=== PATIENT | male | born 1965 | race Caucasian/White ===

== ENCOUNTER 2024-10-26 15:11 | Outpatient (OUT) | payer OTHER, SELFPAY ==
[2024-10-26 15:31] LABS: Basophils Percent Auto 0.5 % (0.2-2.0); Eosinophils Absolute Auto 0.1 10^3/uL (0.0-0.7); Eosinophils Percent Auto 1.2 % (0.9-7.0); Hematocrit 42.7 % (42.0-54.0); Hemoglobin 14.1 g/dL (14.0-18.0); Immature Granulocytes Abs Auto 0.01 10^3/uL (0.00-0.03); Immature Granulocytes Pct Auto 0.1 % (0.0-0.5); Lymphocytes Absolute Auto 2.2 10^3/uL (1.2-3.8); Lymphocytes Percent Auto 28.2 % (20.5-60.0); Mean Corpuscular Hemoglobin 27.5 pg (25.9-34.0); Mean Corpuscular Volume 83.4 fL (80.0-94.0); Mean Platelet Volume 10.9 fL (9.5-13.5); Monocytes Absolute Auto 0.7 10^3/uL (0.3-0.8); Monocytes Percent Auto 8.8 % (1.7-12.0); Neutrophils Absolute Auto 4.7 10^3/uL (1.4-6.5); Neutrophils Percent Auto 61.2 % (43.0-75.0); Platelet Count 226 10^3/uL (150-450); Red Blood Count 5.12 10^6/uL (4.70-6.10); White Blood Count 7.7 10^3/uL (4.0-11.0)
[2024-10-26 15:57] LABS: Creatinine Urine Random 76.62 mg/dL (20.00-300.00); Microalbumin Urine Random <1.3 mg/dL (<=30.0)
[2024-10-26 15:58] LABS: Estimated Average Glucose 192 mg/dL; Glycohemoglobin A1C 8.3 % (4.5-6.2)
[2024-10-26 15:59] LABS: Alanine Aminotransferase 21 U/L (16-63); Albumin Level 3.8 g/dL (3.4-5.0); Alkaline Phosphatase 102 U/L (46-116); Anion Gap 13.2; Aspartate Amino Transferase 8 U/L (15-37); BUN Creatinine Ratio 11.7; Bilirubin Total 0.5 mg/dL (0.2-1.0); Calcium 8.9 mg/dL (8.5-10.1); Chloride 101 mmol/L (98-107); Estimated GFR (African America >60 (>=60 mL/min/1.73m^2); Estimated GFR (Non-African Ame >60 (>=60 mL/min/1.73m^2); Globulin 3.7 g/dL; Glucose 266 mg/dL (74-106); Potassium 4.2 mmol/L (3.5-5.1); Sodium 139 mmol/L (136-145); Total Protein 7.5 g/dL (6.4-8.2)
[2024-10-26 16:28] LABS: Prostate Specific Antigen Scrn 0.44 ng/mL (<=4.00)
== END 2024-10-26 15:12 | disposition home or self-care (01) ==
PROVIDERS: PCP Family Medicine; Visit Provider Family Medicine
DX: E11.9 Type 2 diabetes mellitus without complications (principal); Z12.5 Encounter for screening for malignant neoplasm of prostate
CPT/HCPCS: 36415; 80053; 82043; 82570; 83036; 85025; G0103

== ENCOUNTER 2025-06-18 12:14 | Outpatient (OUT) | payer OTHER, SELFPAY ==
--- OUTSIDE RECORDS SUMMARY | 2025-06-18 08:00 | XMS_ITS | Encounter Summary ---
Author Organization [facility] Address [address] [place] [address] Care Team Providers Care Quality Auditor Name Role Phone Mary Scruggs [employer]ST[employer] Primary Care Provider [phone] Encounter Details Date Type Department Care Team (Late st Contact Info) Description 06/18/2025 8:00 AM EDT Ancillary Procedure [facility] [address] [facility] [place] [id number] Social History Tobacco Use Types Packs/Day Years Used Date Smoking Tobacco: Never Smokeless Tobacco: Former Snuff Comments:10 plus years tobac co free Alcohol Use Standard Drinks/Week Comments Not Currently 4 (1 standard drink = 0.6 oz pur e alcohol) Sex and Gender Information Value Date Recorded Sex Assigned at Not on file Legal Sex Male 7:01 PM EDT Gender Identity Not on file Sexual Orientation Not on file documented as of this encounter Plan of Treatment Pending Results Name Type Priority Associated Diagnoses Date /Time XR hip left 2 or 3 views Imaging Routine Left hip pain 06/18/2025 7:51 AM EDT documented as of this encounter Visit Diagnoses Not on filedocumented in this encounter Care Teams Quality Auditor Relationship Specialty Start Date End Date Mary Scruggs, GAGAN [address] [place] [id number] PCP - General Family Medicine 06/18/25 documented as of this encounter
--- OUTSIDE RECORDS SUMMARY | 2025-06-18 08:05 | XMS_ITS | Encounter Summary ---
Author Organization [facility] Address [address] [place] [address] Care Team Providers Care Surveillance Inspector Name Role Phone Mary Scruggs [employer]NER Primary Care Provider [phone] Encounter Details Date Type Department Care Team (Late st Contact Info) Description 06/18/2025 8:05 AM EDT Ancillary Procedure [facility] [address] [facility] [place] [id number] Social History Tobacco Use Types Packs/Day Years [...] Type Priority Associated Diagnoses Date /Time XR knee 3 views left Imaging Routine Status post left knee replacement 06/18/2025 7:51 AM EDT documented as of this encounter Visit Diagnoses Not on filedocumented in this encounter Care Teams Surveillance Inspector Relationship Specialty Start Date End Date Mary Scruggs, GAGAN [address] [place] [phone] PCP - General Family Medicine 06/18/25 documented as of this encounter
--- OUTSIDE RECORDS SUMMARY | 2025-06-18 08:07 | XMS_ITS | Continuity of Care Document ---
Author Organization [facility] Address [address] [place] [address] Phone Care Team Providers Care Archeologist Name Role Phone Mely Vasquez MD Primary Care Provider Mely Vasquez MD Attending Provider Care Teams Patient Care Team Team Status: Active Member Role Status Dates Mely Vasquez MD Primary Care Provider Active Patient Care Team Team Status: Inactive Member Role Status Dates Mely Vasquez MD Primary Care Provider Active Start: June 18, 2025 End: June 18, 2025 Mely Vasquez MD Attending Provider Active St art: June 18, 2025 End: June 18, 2025 Chief Complaint and Reason for Visit Chief Complaint Admit Date A1C Check June 18, 2025 11:35am Reason for Visit Admit Date Type 2 diabetes mellitus with hyperglyce edwar June 18, 2025 11:35am Allergies, Adverse Reactions, Alerts Allergen Type Severity Reaction Last Updated Verified Status No Known Allergies Allergy Unknown Septem 2024 11:40am Yes Active Social History Smoking Status Status Start Date End Date Date of Observa tion Never smoked tobacco (finding) June 18, 2025 11:32am Observation Status Observation Response Date of Response Legal Sex Male (finding) Sex Assigned At Male 1965 Family History Relationship Condition Age at Onset Recorded Date/T estela father Unknown Heart disease Unknown mother Hypertension Unknown Heart disease Unknown History of heart valve replacement Unknow n Problems Active Problems Medical Problem Onset Date Status Screening PSA (prostate specific antigen) Unknow n Active Type 2 diabetes mellitus with hyperglycemia Unkn own Active Type II diabetes mellitus Unknown Active Osteoarthritis Unknown Active Snoring Unknown Active Gastro-esophageal reflux disease without esophag itis Unknown Active Lumbar paraspinal muscle spasm Unknown A ctive Medications Medication Status Dose Units Route Directions Qty Days St art Date Stop Date End Date Instructions Adherence Metformin 1,000 mg tablet Discont inued 1000 MG PO Twice daily 60 February 17, 2024 1:27pm Augus t 2023 8:17a m Metformin 1,000 mg tablet Discont inued 1000 MG PO Twice daily 180 May 17, 2024 8:16am May 2023 8:38a m Metformin 1,000 mg tablet Discont inued 0 .ROUTE .COMPLEX 60 2023 8:38am Janua ry 2024 9:36a m TAKE 1 TABLET BY MOUTH TWICE A DAY Metformin 1,000 mg tablet Discont inued 0 .ROUTE .COMPLEX 60 Sepuar y 2024 9:36am November 21, 2024 12:50 pm TAKE 1 TABLET BY MOUTH TWICE A DAY Metformin 1,000 mg tablet Discont inued 0 .ROUTE .COMPLEX 180 November 21, 2024 12:50p m March 18, 2025 10:16 am TAKE 1 TABLET BY MOUTH TWICE A DAY Metformin 1,000 mg tablet Active 0 .ROUTE .COMPLEX 180 March 18, 2025 10:16a m TAKE 1 TABLET BY MOUTH TWICE A DAY Complies with drug therapy Glipizide 10 mg tablet extended release 24hr Active 10 MG PO Daily 2024 11:46a m Complies with drug therapy Cyclobenzap rine 5 mg tablet Active 5 MG PO Daily at bedtime February 22, 2025 2:09pm FreeTextSi tablet at bedtime as needed Orally Once a day; Note: Source Status: Start; Provider: Christina Garcia Complies with drug therapy Glipizide 10 mg tablet extended release 24hr Discont inued 10 MG PO Daily February 22, 2025 2:32pm February 22, 2025 2:33p m Glipizide 10 mg tablet extended release 24hr Discont inued 10 MG PO Daily February 22, 2025 2:33pm [facility] 2024 11:47 am Tirzepatide (Mounjaro) 5 mg/0.5 mL pen injector Active 5 MG SUBCUT every week 6.5 90 2024 12:00a m Complies with drug therapy Cyclobenzap rine 5 mg tablet Discont inued 1 TAB PO Daily at bedtime January 25, 2024 12:00a m January 26, 2024 10:30 am FreeTextSi tablet at bedtime as needed Orally Once a day; Note: Source Status: Start; Provider: Christina Garcia Omeprazole 20 mg capsule,del ayed release(DR/ EC) Active 1 CAP PO Daily January 25, 2024 12:00a m FreeTextSi capsule Orally Once a day; Note: Source Status: Taking; Provider: Christina Boone ( ) Complies with drug therapy Metformin 1,000 mg tablet Discont inued 1000 MG PO Twice daily with meals January 25, 2024 12:00a m January 26, 2024 10:31 am Tadalafil (Cialis) 20 mg tablet Discont inued 20 MG PO Daily as needed January 25, 2024 12:00a m Febru twan 2024 3:41p m administer approximately 30min before sexual activity; do not use more than 1 dose per 24hrs Metformin 1,000 mg tablet Discont inued 1000 MG PO Daily January 26, 2024 10:31a m January 26, 2024 10:47 am Metformin 1,000 mg tablet Discont inued 1000 MG PO Twice daily 60 January 26, 2024 10:46a m February 17, 2024 1:27p m Pregabalin (Lyrica) 300 mg capsule Active 300 MG PO Twice daily 2024 1:00am Complies with drug therapy Amitriptyli ne 10 mg tablet Active 20 MG PO Daily at bedtime 2024 1:00am Complies with drug therapy Glipizide 5 mg tablet extended release 24hr Discont inued 5 MG PO Daily 90 2024 1:00am February 22, 2025 2:33p m Immunizations Immunization Event Date Not Given Reason Dose Number [employer] Work[employer] Lot Number Vaccine Information Statement (VIS) Detail Administration Location Quadrivalent Influenza June 16, 2016 Trivalent Influenza Vaccine May 26, 2017 Vital Signs Vital Reading Result Reference Range Collection Date/Time Height 68 [in_i] June 18, 2025 11:40am Weight 96.78 kg June 18, 2025 11:40am Heart Rate 67 /min 60-100 June 18, 2025 11:40am Respiratory rate 14 /min 12-24 May 222024 11:40am Oxygen saturation by Pulse oximetry 99 % 95-100 June 18, 2025 11:40am BP Systolic 149 mm[Hg] 100-140 June 18, 2025 11:40am BP Diastolic 81 mm[Hg] 60-100 June 18, 2025 11:40am BMI (Body Mass Index) 32.4 kg/m2 Sept2024 11:40am Advance Directives Advance Directive Response Recorded Date/ Time Advance Directives No May 11:32am Insurance Providers Guarantor Franco Gill Address [address] [phone] Contact Info. Home Phone: Payer Policy Id Subscriber's Name Subscriber Id Gary ctive Date Expiration Date MMO [id number] Franco Gill [id number] [place] BC/BS [id number] Franco Gill [id number] Regular Insurance [id number] Consetta Loren Roman [id number] [place] [employer] [id number] Jean Marie Pimentel Roman [id number] Encounters Encounter Location(s) Arrival/Admit Date Discharge/Depart Date Provider(s) Departed Physician/Prov ider Office Visit -[facility] June 18, 2025 11:35am June 18, 2025 12:07pm Mely Vasquez MD Recent Diagnosis Onset Date Admit Date Type 2 diabetes mellitus with hyperglycemia Unkn own June 18, 2025 11:35am Assessments Diagnosis Onset Date Resolution Status Admit Date Type 2 diabetes mellitus wit h hyperglycemia acute June 18, 2025 11:35am Plan of Treatment Future Tests Future scheduled test information is unavailable Pending Tests Pending diagnostic test information is unavailable Future Visits Future appointment information is unavailable Referrals to Other Providers Referral information is unavailable Future Procedures Procedure Name Ordered Date Scheduled Date A1C with Estimated Average Glu June 18 025 11:58am Future Medications Future medication information is unavailable Patient Instructions Patient instructions are unavailable
--- OUTSIDE RECORDS SUMMARY | 2025-06-18 10:10 | XMS_ITS ---
Author Name Auto Generated Organization [facility] Care Team Providers [facility] Helper Name Role Phone CHE, ANNALEE Rdz Referring Unavailable BOLTON, ANNALEE T Attending Unavailable GUZMÁN, MALA Santoyo Attending Unavailable BOLTON, ANNALEE T Referring Unavailable BOLTON, ANNALEE T Referring Unavailable BOLTON, ANNALEE T Referring Unavailable BOLTON, ANNALEE T Attending Unavailable GUZMÁN, MALA Santoyo Attending Unavailable GUZMÁN, MALA Santoyo Attending Unavailable BOLTON, ANNALEE T Referring Unavailable BOLTON, ANNALEE T Attending Unavailable BOLTON, ANNALEE T Referring Unavailable BOLTON, ANNALEE T Referring Unavailable DENBESTEN, ELROY Attending Unavailable TAVARES, HOLLY Referring Unavailable Tavares, Holly A. Attending Unavailable FRANKLIN, ESTEE Referring Unavailable Tavares, Holly A. Admitting Unavailable FRANKLIN, ESTEE Referring Unavailable Uv, Caprim G. Attending Unavailable Tavares, Holly A. Admitting Unavailable Tavares, Holly A. Referring Unavailable Tavares, Holly A. Attending Unavailable Tavares, Holly A. Referring Unavailable Tavares, Holly A. Attending Unavailable Tavares, Holly A. Attending Unavailable Tavares, Holly A. Referring Unavailable Tavares, Holly A. Referring Unavailable Tavares, Holly A. Attending Unavailable Tavares, Holly A. Attending Unavailable Tavares, Holly A. Referring Unavailable Tavares, Holly A. Attending Unavailable Tavares, Holly A. Admitting Unavailable Tavares, Holly A. Attending Unavailable Tavares, Holly A. Admitting Unavailable Tavares, Holly A. Attending Unavailable Tavares, Holly A. Admitting Unavailable Tavares, Holly A. Admitting Unavailable Tavares, Holly A. Attending Unavailable FRANKLIN, ESTEE Referring Unavailable Vu, Linn G. Attending Unavailable FRANKLIN, ESTEE Referring Unavailable NONE, XXXX Referring Unavailable Juárez, Larisa Attending Unavailable Juárez, Larisa Admitting Unavailable Tavares, Holly A. Admitting Unavailable FRANKLIN, ESTEE Referring Unavailable Tavares, Holly A. Attending Unavailable Tavares, Holly A. Admitting Unavailable Tavares, Holly A. Referring Unavailable Tavares, Holly A. Attending Unavailable Tavares, Holly A. Attending Unavailable Tavares, Holly A. Admitting Unavailable FRANKLIN, ESTEE Referring Unavailable Tavares, Holly A. Attending Unavailable Tavares, Holly A. Admitting Unavailable FRANKLIN, ESTEE Referring Unavailable Juárez, Larisa Attending Unavailable Juárez, Larisa Admitting Unavailable FRANKLIN, ESTEE Referring Unavailable PROBLEMS No Problem Records Found PROCEDURES No Procedure Records Found RESULTS CONSULTATION NOTE Observed: 06/10/2025 1:33 PM Status: F Source: [facility] Consultation Note Patient is presenting with a history of CRPS of left lower extremity, peripheral neuropathy and left foot pain. In 06/03/2025 he underwent a spinal cord stimulator implant. He rates his pain as 1/10 in severity. He has very minimal pain in his left foot and feels that this is extremely beneficial. He does have some low back pain and soreness around the incision sites but this is improving he rates his pain as a 3-4/10 in severity. Overall he feels this is very helpful so far. He is taking Lyrica and amitriptyline as well. We discussed continuation of this medication till his next follow-up at that point we can discuss whether it be appropriate to discontinue these medications if he is still doing well AUDRA Score: 34% PHQ-2: 0 Patient denies any symptoms of progressively worsening upper/lower extremity weakness, progressively worsening gait abnormality, new onset bowel/bladder incontinence/ urinary retention, or saddle anesthesia. No new or worsening symptoms of fever, chills, night sweats. 14 Point Review of systems negative unless otherwise noted. General: No acute distress. Patient appears well-nourished. HEENT: Head is normocephalic and external ears are normal in appearance. Cardiovascular: No signs of poor perfusion, exam for edema at patient's baseline Pulmonary: Nonlabored breathing, symmetric chest movement. GI: Abdomen nondistended Integumentary: No lesions in examined areas Neurologic: Alert, oriented x3. Moving all extremities. Posterior lumbar incision sites clean/dry/intact without any surrounding erythema or drainage. Glue is intact. History, physical examination, and personal review of pertinent imaging results indicate a diagnosis of: - Peripheral neuropathy - Left foot pain - Left lower extremity CRPS Plan: - Discussed monitoring incision site and avoiding any water submersion until the site is completely healed. - We discussed continuation of Lyrica and amitriptyline for peripheral neuropathy - Follow-up in 3 months, at this time we can consider discussing whether it would be appropriate to discontinue amitriptyline or Lyrica or both Patient was counseled on the above diagnosis and treatment, all questions were answered and patient agrees to adhere to the plan above. Risk and benefits of appropriate procedures and medications were reviewed as well with patient, who voiced understanding and agreeance. Patient was counseled on appropriate use of opioids if prescribed or renewed today and naloxone was offered to patient if opioids were prescribed or maintained at this visit. If corticosteroid therapy administered for a duration of greater than 12 months, the therapy has been reviewed to ensure it remains efficacious and we have notified the patient's PCP of continued corticosteroid administration. PHQ-2 scoring reviewed with patient and discussed seeking treatment for depression or mood disorder as appropriate. Patient was counseled on smoking cessation and/or continuing to abstain from nicotine/tobacco products as appropriate based on history for greater than 3 minutes if appropriate; as smoking/nicotine can contribute to increased pain overall and decreased wound healing, counseling performed for smoking cessation when appropriate for F17.200 nicotine dependence. AUDRA reviewed and discussed during encounter. Patient counseled on maintaining a healthy BMI as part of the total treatment of their pain and to reduce stress/strain on joints. Patient invited to return or call with any questions or concerns that arise. Result Comment: Electronical ly Signed By: Eugenio Tavares DO\.br\Date and Time Signed: 06/10/25 13:39 EDT PROGRESS NOTE-PHYSICIAN Observed: 2024 11:27 AM Status: F Source: [facility] Progress Note-Physician Patient: LIZ SOLORZANO Age: 59 years Sex: Male : 1965 Associated Diagnoses: None Author: Jerrell Calles MD Postoperative Information Postoperative disposition: Postoperative disposition: To PACU. Optimetrix number: Optimetrix number [id number]. Anesthetic utilized: Monitored anesthesia care. Health Status Allergies: Allergic Reactions (Selected) No Known Allergies Physical Examination Vital Signs 06/03/2025 10:40 EDT Heart Rate Monitored 75 bpm SpO2 98 % 06/03/2025 10:40 EDT Systolic Blood Pressure 152 mmHg HI Diastolic Blood Pressure 78 mmHg Mean Arterial Pressure, Cuff 102 mmHg Pain Assessment: Controlled. General: Awake, Appropriate. Respiratory: Adequate air exchange. Cardiovascular: Stable. Neurological Assessment Anesthetic outcome No anesthetic complications noted. Adequate pain relief. no nausea. Review / Management Condition: Stable. Plan Transfer/Discharge: Transfer/Discharge Discharge when meets criteria. Result Comment: Electronical ly Signed By: Jerrell Calles MD\.br\Date and Time Signed: 06/03/25 11:27 EDT OPERATIVE REPORT Observed: 06/03/2025 10:35 AM Status: F Source: [facility] Operative Report Diagnosis: G90.532, complex regional pain syndrome of the left lower extremity Procedure: Implantation percutaneous spinal cord stimulator neuro electrodes x 2, implantation of spinal cord stimulator neuroreceiver/pulse generator, complex analysis of neurostimulator Anesthesia: MAC Complications: None Ferruler: marketing assistant manager provided Implanted devices: -Neuroreceiver/pulse generator: [employer] wavewriter alpha 16 -Neuroelectrodes: two avista 56cm 8 contact lead -Electrode anchors: two clik X MRI anchors Description: After informed consent was obtained and risks/benefits were reviewed inclusive of risks related to infection/bleeding/nerve injury/injury to surrounding structures of procedural site, antibiotics were administered including 2 g of cefazolin. The patient was then brought to the procedure area and placed in the prone position. Patient was placed on the monitors then monitored with anesthesia. A timeout was then performed indicating the appropriate procedure and patient. Next, the patient was prepped using a ChloraPrep solution and sterile drapes then Ioban were applied, sterile gowns and gloves were utilized throughout the whole case. The needle trajectory overlying the T12/L1 interlaminar space was anesthetized with 2% lidocaine with epi as well as the planned incision site. A 3 cm incision was then made in a longitudinal paramedian approach on the left side lumbar spine along the needle trajectory using an 10 blade. A touhy needle was then advanced into the epidural space with confirmation using glass upjm-ni-nyxmtoizgl syringe and lead was threaded at T12/L1 . A second Touhy was then advanced underneath the initial Touhy. Next we proceeded with epidural placement of both of Avista 56 cm 8 contact leads advanced to the Top of T8 vertebral level. AP and lateral radiograph confirmed posterior placement. The patient was then awoken and complex programming was performed to ensure adequate coverage to her painful regions. Once complete coverage of his painful areas was confirmed, the patient's anesthetic was deepened. We then irrigated the incision with sterile saline at the point of entry of her stimulator leads, next clik anchors were utilized to affix the stimulator leads to the paraspinous fascia/ligament. Fixate sutures were used to attach the anchors to appropriate fascial tissue. Hemostasis was achieved using electrocautery. The right subcostal region posteriorly was then marked and a craniocaudal incision was made using an 10 blade about 8 cm in length, electrocautery was used to provide hemostasis to the incision site, blunt dissection was then performed by hand to create a pocket above the layer of Mohan's fascia. Next, after creation of the pocket, both wounds were irrigated with sterile saline. The [employer] commercial lines underwriter alpha 16 pulse generator kit was then attached to the spinal cord stimulator leads after a Touhy needle was used to create a channel between the 2 incisions to allow passage of both spinal cord stimulator leads. Once the leads were affixed to the generator, it was confirmed the generator was functioning appropriately and receiving appropriate information from the spinal cord stimulator leads. Then, two 2-0 silk sutures were used to affix the spinal cord stimulator generator into the pocket and the stimulator leads were coiled underneath the generator within the pocket. Then with the help of the marketing assistant manager both wounds were closed in a stepwise fashion using 0 Vicryl for the deep fascial layer, 2-0 Vicryl was then used for the superficial fascial layer and a running subcuticular 3-0 Vicryl and Monocryl was used for closure of the skin layer. Skin glue was then applied. After drying, this was covered with a Telfa dressing covered with petroleum jelly. A Tegaderm was then placed to cover the area. The patient was then transported the recovery area in stable condition without apparent complication. Postoperative valuation revealed 5/5 muscle strength in the bilateral lower extremities. Follow-up: We will plan to see the patient in 1-2 weeks or sooner if any issues arise, the patient agreed to adhere to the prescribed plan regarding her spinal cord stimulator trial. Postoperative pain medication and prophylactic antibiotics were provided. Result Comment: Electronical ly Signed By: Eugenio Tavares DO\.br\Date and Time Signed: 06/03/25 10:39 EDT MAIN OR INTRAOPERATIVE RECORD Observed: 06/03/2025 8:18 AM Status: C Source: [facility] Main OR Intraoperative Recor d IntraOp Document Type FTPM Summary Primary Physician: Eugenio Tavares DO Finalized Date/Time: 06/03/25 11:14:19 Pt. Name: LIZ SOLORZANO/Sex: 1965 Male Med Rec #: [id number] Physician: Eugenio Tavares DO Financial #: [id number] Pt. Type: P Room/Bed: / Admit/Disch: 06/03/25 07:05:00 - Institution: Case Times FTPM Entry 1 Patient Times In Room 06/03/25 08:15:00 Out Room 06/03/25 10:25:00 Procedure Times Start 06/03/25 08:18:00 Stop 06/03/25 10:25:00 Anesthesia Times Start 06/03/25 08:15:00 Stop 06/03/25 10:25:00 Last Modified By: Guero Peterson RN 06/03/25 10:28:54 Case Attendance FTPM Entry 1 Entry 2 Entry 3 Case Attendee Michael TORRES, Dena Tavares DO, Jose Hooks Role Performed Anesthesiologist Surgeon - Primary Corn Sheller Ferruler Time In 06/03/25 08:15:00 06/03/25 08:15:00 06/03/25 08:15:00 Time Out 06/03/25 10:25:00 06/03/25 10:25:00 06/03/25 10:25:00 Procedure SPINAL CORD STIMULATOR SPINAL CORD STIMULATOR SPINAL CORD STIMULATOR IMPLANT(.) IMPLANT(.) IMPLANT(.) Comments [facility] Last Modified By: Nicholas RN, Guero Peterson RN, Guero Peterson RNGuero 06/03/25 11:14:15 06/03/25 11:14:15 06/03/25 11:14:15 Entry 4 Entry 5 Entry 6 Case Attendee Nicholas FONSECA, Guero Simon RN, Gisella Calles MD, Jerrell Barnett Role Performed Consulting Database Administrator - Primary Scrub - Primary Anesthesiologist of Record Time In 06/03/25 08:15:00 06/03/25 08:15:00 06/03/25 08:15:00 Time Out 06/03/25 10:25:00 06/03/25 10:25:00 06/03/25 10:25:00 Procedure SPINAL CORD STIMULATOR SPINAL CORD STIMULATOR SPINAL CORD STIMULATOR IMPLANT(.) IMPLANT(.) IMPLANT(.) Comments Last Modified By: Nicholas RN, Guero Peterson RN, Guero Peterson RN, Guero Sood 06/03/25 11:14:15 06/03/25 11:14:15 06/03/25 11:14:15 Perioperative Protocols FTPM Pre-Care Text: Implements protective measures prior to operative or invasive procedure, confirms identity before the operative or invasive procedure, verifies operative procedure, surgical site, and laterality Entry 1 Procedure(s) SPINAL CORD STIMULATOR Patient Identity Birthday, ID Band IMPLANT(.) Verified (select at Check, Patient least 2): Participation Consents / H and P H&P, Surgery/Procedure Operative Site Present Verified Consent Marking Verified Surgical Site Yes Laterality Verified Yes Verified Procedure Verified Yes Correct Patient Yes Position Verified Availability Equipment, Implant, Prep Dry Yes Verified (If Medication, X-ray Applicable) PreOp Antibiotic Yes Time Out Dena Rodriguez CRNA, Given Participants Jose Garvin Harvey RN, Aurora Eid RN, Peter Rizzo DO, Bradford A. Time Out Complete 06/03/25 08:15:00 Outcomes Met? Yes Last Modified By: Guero Peterson RN 06/03/25 08:28:24 Post-Care Text: The patient is free from signs and symptoms of injury caused by extraneous objects Allergy Information FTPM Pre-Care Text: Verifies allergies Entry 1 Allergies Reviewed? Yes Allergies Reviewed Self/Patient With Outcomes Met? Yes Last Modified By: Guero Peterson RN 06/03/25 08:28:32 Post-Care Text: The patient received appropriate medication(s) safely administered during the perioperative period Surgical Procedures FTPM Entry 1 Procedure Description Procedure SPINAL CORD STIMULATOR Modifiers . IMPLANT Surgeon Description SCS FULL IMPLANT Primary Procedure Yes Primary Surgeon Eugenio Tavares DO Start 06/03/25 08:18:00 Stop 06/03/25 10:25:00 Anesthesia Type MAC Surgical Service Pain Management Wound Class 1 - Clean Last Modified By: Guero Peterson RN 06/03/25 10:28:57 General Case Data FTPM Pre-Care Text: Classifies surgical wound, implements aseptic technique, initiates traffic control Entry 1 Case Information OR Pain Proc Room Case Level Level 2 Wound Class 1 - Clean Specialty Pain Management ASA Class 2 Preop Diagnosis G90.522 Postop Same As Preop Yes Postop Diagnosis G90.522 Outcomes Met? Yes Last Modified By: Guero Peterson RN 06/03/25 08:28:51 Post-Care Text: The patient is free from signs and symptoms of infection Skin Assessment (Pre Procedure) FTPM Pre-Care Text: Implements protective measures to prevent skin/ tissue injury due to thermal or mechanical sources Evaluates for signs and symptoms of physical injury to skin and tissue Entry 1 Skin Integrity Intact, [place], Warm, & Skin Abnormality No Dry Outcomes Met? Yes Last Modified By: Guero Peterson RN 06/03/25 08:29:00 Post-Care Text: The patient is free from signs and symptoms of injury caused by extraneous objects Patient Positioning FTPM Pre-Care Text: Identifies physical alterations that require additional precautions for procedure-specific positioning, verifies presence of prosthetics or corrective devices, positions the patient, evaluates the patient for signs and symptoms of injury as a result of positioning Entry 1 Procedure SPINAL CORD STIMULATOR Body Position Prone IMPLANT(.) Feet Uncrossed? Yes Left Arm Position Resting at Side Right Arm Position Resting at Side Left Leg Position Extended Right Leg Position Extended Positioning Device Pillow Under Head Large, Safety Strap, Pillow Large Under Knees Press Points Checked Yes By Guero Peterson RN Outcomes Met? Yes Last Modified By: Guero Peterson RN 06/03/25 08:29:11 Post-Care Text: The patient is free from signs and symptoms of injury related to positioning Patient Care Devices FTPM Pre-Care Text: Implements protective measures to prevent skin/ tissue injury due to thermal or mechanical sources Entry 1 Equipment Type Electrothermal Unit Outcomes Met? Yes Last Modified By: Guero Peterson RN 06/03/25 08:29:27 Post-Care Text: The patient is free from signs and symptoms of injury caused by extraneous objects Transport To OR FT Pre-Care Text: Transports according to individual needs. Evaluates for signs and symptoms of skin and tissue injury as a result of transfer or transport Entry 1 Via Cart By Guero Peterson RN Safety Precautions Safety Strap, Side Outcomes Met? Yes Rails Up Last Modified By: Guero Peterson RN 06/03/25 08:29:37 Post-Care Text: The patient is free from signs and symptoms of injury related to transfer/transport Cautery FTPM Pre-Care Text: Implements protective measures to prevent injury due to electrical sources, and evaluates for signs and symptoms of electrical injury Entry 1 ESU Identification ESU Type Electrothermal Unit ESU Settings ESU Grounding Pad Site Left Lower Leg Pre Pad Site Clear and Intact Condition Post Pad Site Clear and Intact Grounding Pad Guero Peterson RN Condition Placed By Outcomes Met? Yes Last Modified By: Guero Peterson RN 06/03/25 08:30:07 Post-Care Text: The patient if free from signs and symptoms of electrical injury Counts Verification FTPM Pre-Care Text: Performs required counts Entry 1 Entry 2 Entry 3 Procedure(s) SPINAL CORD STIMULATOR SPINAL CORD STIMULATOR SPINAL CORD STIMULATOR IMPLANT(.) IMPLANT(.) IMPLANT(.) Type Initial Final Closing Items Instruments, Sponges, Instruments, Sponges, Instruments, Sponges, Sharps Sharps Sharps Status Correct Correct Time 06/03/25 08:15:00 06/03/25 09:35:00 By Outcomes Met? Yes Yes Yes Last Modified By: Guero Peterson RN, RN, Christopher Harvey RN, Christopher M 06/03/25 09:43:03 M 06/03/25 09:43:03 06/03/25 09:43:03 Post-Care Text: The patient is free from signs and symptoms of injury caused by extraneous objects Skin Prep FTPM Pre-Care Text: Performs skin preparations Entry 1 Procedure SPINAL CORD STIMULATOR Prep Area BLOCK INJECTION SITE IMPLANT(.) Prep Agents Chloraprep/Dry Prior to Start Dry Time 06/03/25 08:15:00 Draping Stop Dry Time 06/03/25 08:18:00 Hair Removal Methods Not Indicated By Gisella Simon RN Outcomes Met? Yes Last Modified By: Guero Peterson RN 06/03/25 08:31:21 Post-Care Text: The patient is free from signs and symptoms of infection Departure From OR FTPM Pre-Care Text: Transports according to individual needs. Evaluates for signs and symptoms of skin and tissue injury as a result of transfer or transport. Entry 1 Via Cart Safety Precautions Safety Strap, Side Rails Up PostOp Destination PACU Transported By Guero Peterson RN Patient Status Stable Report Given Seema Enciso RN To/Hand Off Communication Skin. Condition Dry, Intact Airway Maintenance Oxygen in Use? No Outcomes Met? Yes Last Modified By: Guero Peterson RN 06/03/25 08:31:35 Post-Care Text: The patient is free from signs and symptoms of injury related to transfer/transport Dressing/Packing FTPM Pre-Care Text: Administers care to wound sites Entry 1 Type Dressing Site and Details 4x4, suture, obsite and Bacitracin skin glue Outcomes Met? Yes Last Modified By: Guero Peterson RN 06/03/25 10:21:55 Post-Care Text: The patient is free from signs and symptoms of infection Medication Administration FTPM Pre-Care Text: Verifies allergies, administers prescribed medications and solutions, administers prescribed antibiotic therapy and immunizing agents as ordered, evaluates response to medications Administers prescribed medications and solutions Entry 1 Route of Admin Block Expiration Date Yes Verified Ordered By Eugenio Tavares DO Transcribed/To Guero Peterson RN By Administered By Eugenio Tavares DO Outcomes Met? Yes Last Modified By: Guero Peterson RN 06/03/25 08:32:31 Post-Care Text: The patient received appropriate medication(s) safely administered during the perioperative period X-Rays & Images FTPM Pre-Care Text: Assess history of previous radiation exposure and implements protective measures Entry 1 X-Ray Type C-Arm Contrast Used? Yes Outcomes Met? Yes Last Modified By: Guero Peterson RN 06/03/25 08:32:54 Post-Care Text: The patient is free from signs and symptoms of radiation injury Implant Log FTPM Pre-Care Text: Records devices implanted during the operative or invasive procedure Entry 1 Entry 2 Entry 3 Implant/Explant Implant Implant Implant Implant Identification Description Avista MRI Avista MRI Clik X MRI [employer] Serial Number [id number] Model SC-4319 Lot Number Model SC-2408-56 Model SC-2408-56 [id number] Liner Inserter [employer] ???# Model SC -2408-56 Model SC -2408-56 [id number] Size Expiration Date 03/06/27 02/18/27 06 Usage Data Implant Site Quantity Temperature Reconstitution Method Outcomes Met? Yes Yes Yes Last Modified By: Guero Peterson RN, RN, Guero Monaco RN 06/03/25 08:54:08 06/03/25 09:01:08 06/03/25 09:24:19 Entry 4 Implant/Explant Implant Implant Identification Description WaveWriter Alpha 16 Implantable Pulse Generator Kit Serial Number [id number] Lot Number [id number] Liner Inserter [employer] Catalog ???# [id number] Size Expiration Date 06/03/25 Usage Data Implant Site Quantity Temperature Reconstitution Method Outcomes Met? Yes Last Modified By: Guero Peterson RN 06/03/25 09:24:19 Post-Care Text: The patient is free from signs and symptoms of injury caused by extraneous objects General Comments: 50mcg x2 Fentanyl pulled for BRIAN Rodriguez to use for procedure. Extra 500ml NS pulled. Case Comments <None> Finalized By: Guero Peterson RN Document Signatures Signed By: Guero Peterson RN 06/03/25 10:29 Guero Peterson RN 06/03/25 11:13 Guero Peterson RN 06/03/25 11:14 Unfinalized History Date/Time Username Reason for Unfinalizing Freetext Reason for Unfinalizing 06/03/25 11:12 [id number] Modifying Existing Data 06/03/25 11:13 [id number] Modifying Existing Data MAIN OR PREOPERATIVE RECORD Observed: 8:00 AM Status: F Source: [facility] Main OR Preoperative Record Holding Area Document Type FTPM Summary Primary Physician: Eugenio Tavares DO Finalized Date/Time: 06/03/25 07:22:03 Pt. Name: LIZ SOLORZANO/Sex: 1965 Male Med Rec #: [id number] Physician: Eugenio Tavares DO Financial #: [id number] Pt. Type: P Room/Bed: / Admit/Disch: 06/03/25 07:05:00 - Institution: Case Times Holding FTPM Pre-Care Text: Verifies consent for planned procedure, identifies individual values and wishes concerning care, includes family members in perioperative teaching Secures patient's records' belongings, and valuables, maintains patient's dignity and privacy, and maintains patient confidentiality Entry 1 In Holding 06/03/25 07:18:00 Outcomes Met? Yes Last Modified By: Karen Godinez RN 06/03/25 07:18:20 Post-Care Text: The patient participates in decisions affecting his or her perioperative plan of care The patient's right to privacy is maintained Surgery Checklist FTPM Entry 1 Patient Birthday, ID Band Procedure History and Physical, Identification: Check, Patient Verification: Surgical Consent, With Participation Patient NPO after Midnight: Yes Personal Items: Glasses Complaints of Pain: Yes Pain Comment: 03/28 ankle foot Operative Site Yes Marked By: Peter Marking: Location: Lumbar Availability Equipment, X-Ray Verified: Does Patient Smoke No Patient states Yes Comment - Adult Amy-Friend postop adult Supervision supervision available Case Cancelled in No Holding Area see comments below for reason Last Modified By: Karen Godinez RN 06/03/25 07:21:59 Finalized By: Karen Godinez RN Document Signatures Signed By: Karen Godinez RN 06/03/25 07:22 PROGRESS NOTE-PHYSICIAN Observed: 2024 7:45 AM Status: F Source: [facility] Progress Note-Physician Patient: LIZ SOLORZANO Age: 59 years Sex: Male : 1965 Associated Diagnoses: None Author: Jerrell Calles MD Preoperative Information Anesthesia Preop Info: Time patient last ate or drank 06/03/2025 00:00:00. Anesthesia history: Patient history: None. Family history+: None. Informed consent: Signed by patient. Including risks, benefits, and alternatives related to the: Anesthetic plan. Re-evaluation prior to induction: Jerrell Calles MD. Review of Systems Eye Ear/Nose/Mouth/Throat Respiratory: No shortness of breath, No cough. Cardiovascular: Negative, No chest pain. Gastrointestinal: No heartburn. Musculoskeletal Neurologic Health Status Allergies: Allergic Reactions (Selected) No Known Allergies, Allergies (1) Active Severity Reaction No Known Allergies None Documented Current medications: (Selected) Prescriptions Prescribed Handicap placard: Handicap placard, See Instructions, 1 EA, 0, Dispense 1 handicap placard Length of need: 1 year Diagnosis: Limited mobility, Supply Lyrica 300 mg Cap: 300 mg = 1 cap(s), Oral, BID, X 90 day(s), # 180 cap(s), Refills(s) 0, Pharmacy: [facility], 175, cm, 05/13/25 13:35:00 EDT, Height/Length Dosing, 91, kg, 05/13/25 13:35:00 EDT, Weight Dosing amitriptyline 10 mg Tab: 20 mg = 2 tab(s), Oral, Once a day (at bedtime), X 90 day(s), # 180 tab(s), Refills(s) 0, Pharmacy: [facility], 175, cm, 05/13/25 13:35:00 EDT, Height/Length Dosing, 91, kg, 05/13/25 13:35:00 EDT, Weight Dosing Documented Medications Documented Prilosec: 20 mg, Oral, Daily, Refills(s) 0, Indigestion glipiZIDE 10 mg ER Tab: 10 mg = 1 tab(s), Oral, Daily, Refills(s) 0 metformin 1000 mg Tab: 1,000 mg = 1 tab(s), Oral, BID, Refills(s) 0, High blood sugar, Home Medications (6) Active amitriptyline 10 mg Tab 20 mg = 2 tab(s), Oral, Once a day (at bedtime) glipiZIDE 10 mg ER Tab 10 mg = 1 tab(s), Oral, Daily Handicap placard See Instructions Lyrica 300 mg Cap 300 mg = 1 cap(s), Oral, BID metformin 1000 mg Tab 1,000 mg = 1 tab(s), Oral, BID Prilosec 20 mg, Oral, Daily , No qualifying data available Problem list: All Problems Acid reflux / SNOMED CT 066520167 / Confirmed BPH associated with nocturia / SNOMED CT 9215840283 / Confirmed Erectile dysfunction / SNOMED CT 0217612579 / Confirmed Feeling of incomplete bladder emptying / SNOMED CT 237769810 / Confirmed Glycosuria / SNOMED CT 79872288 / Confirmed Intermittent urinary stream / SNOMED CT 38036203 / Confirmed Microscopic hematuria / SNOMED CT 559008991 / Confirmed NIDDM / SNOMED CT 653627912 / Confirmed Nocturia / SNOMED CT 701461886 / Confirmed TRI (obstructive sleep apnea) / SNOMED CT 257214363 / Confirmed TRI treated with BiPAP / SNOMED CT 798290958 / Confirmed Shoulder impingement syndrome / SNOMED CT [id number] / Confirmed Urinary hesitancy / SNOMED CT 879953968 / Confirmed, Active Problems (13) Acid reflux BPH associated with nocturia Erectile dysfunction Feeling of incomplete bladder emptying Glycosuria Intermittent urinary stream Microscopic hematuria NIDDM Nocturia TRI (obstructive sleep apnea) TRI treated with BiPAP Shoulder impingement syndrome Urinary hesitancy Histories Past Medical History: Active NIDDM () Shoulder impingement syndrome ([id number]) Acid reflux (164033625) Family History: Congenital heart disease Mother Arthritis Father Mother Procedure history: SCS TRIAL ([id number]) on 05/06/2025 at 59 Years. Total knee replacement. ([id number]) on 06/11/2024 at 58 Years. Arthroscopy of LEFT shoulder ([id number]) on 11/28/2023 at 57 Years. Arthroscopy of LEFT knee ([id number]) on 08/17/2023 at 57 Years. excision of foreign body right hand on 03/03/2012 at 46 Years. bilateral carpal tunnel in 2007 at 41 Years. Ankle fracture ([id number]) in 2005 at 39 Years. Comments: 07/21/2012 6:43 Gabi Jimenez RN right Decompression of ulnar nerve ([id number]) in 2005 at 39 Years. Comments: 07/21/2012 6:46 Gabi Jimenez RN right Arthroscopic knee operation ([id number]). Comments: 03/29/2019 14:52 Kiana Oleary 07/21/2012 6:44 Gabi Jimenez RN x2 -right Tympanoplasty ([id number]). Tonsillectomy (454136423). Arthroscopy of shoulder RCR (395686935). Social History Social & Psychosocial Habits Alcohol 05/27/2025 Use: Past 05/27/2025 Use: Past Type: Beer, Liquor Frequency: 1-2 times per month Substance Abuse 05/27/2025 Type: Marijuana Tobacco 05/27/2025 Risk Assessment: Denies Tobacco Use 05/27/2025 Tobacco Use: Former smoker, quit more 05/27/2025 Tobacco Use: Former smoker, quit more 05/27/2025 Tobacco Use: Never (less than 100 in l Comment: former chewing tobacco, denies smoking history - 05/17/2024 13:29 - Shannen Dhaliwal RN Physical Examination No qualifying data available Airway: Mallampati classification: II (soft palate, fauces, uvula visible). Respiratory: Lungs are clear to auscultation, Respirations are non-labored, adequate air exchange. Cardiovascular: Regular rhythm, No murmur, 2+ bilateral radial pulses, no peripheral edema, no JVD. Review / Management Results review: No qualifying data available . Plan [employer]esthesiologists (ASA) physical status classification: Class II. Anesthetic Preoperative Plan: Anesthesia General. Result Comment: Electronical ly Signed By: Stevan MCNULTY, Jerrell Barnett\.br\Date and Time Signed: 06/03/25 08:09 EDT CAPILLARY GLUCOSE POC Collected: 2024 7:26 AM Status: F Source: [facility] TYPE CODE TESTS RESULT OUT OF RANGE REFERENCE UNITS LAB [id number](INC) Glucose Cap 224 High 55-99 mg/d L Result Comment: Cleaned Mete r Performed By: #### [id number] #### [facility] [address] [place], [place] [id number] MRSA SCREEN Observed: 05/27/2025 12:03 PM Status: F Source: [facility] Microbiology PROCEDURE: MRSA Screen [R1] SOURCE: Nasal BODY SITE: COLLECTED DATE/TIME: 05/27/2025 12:03 EDT RECEIVED DATE/TIME: 05/27/2025 13:34 EDT START DATE/TIME: 05/27/2025 13:34 EDT FREE TEXT SOURCE: Eugenio Tavares DO, DO, Bradford A. FINAL REPORTS Final Report [] Verified Date/Time: 05/29/2025 06:59 EDT MRSA Negative. Performing Locations R1: This test was performed at: [facility], [address] [place] [address], [id number], Performed By: #### [id number] #### [facility] [address] [place] [id number] CONSULTATION NOTE Observed: 05/13/2025 1:46 PM Status: F Source: [facility] Consultation Note Patient: LIZ SOLORZANO Age: 59 years Sex: Male : 1965 Associated Diagnoses: None Author: Larisa Juárez PA-C Subjective Chief complaint 05/13/2025 13:24 EDT Left foot pain . Patient is a 59-year-old male. He has a past medical history significant for CRPS, left foot pain and polyneuropathy. He had a spinal cord stimulator trial done on 05/06/2025 and he had 90% relief. He states that his left foot pain was significantly improved. He was overall happy. He is better able to walk. He is better able to stand. He is better able to be active. He is overall very pleased with how much relief this has given him and thus far, this has been nothing to give him the most relief. He is eager to pursue the full implant to get some long-term relief. In the meantime he continues on amitriptyline and Lyrica. He tolerates the medications well. No side effects. He takes them as described at this time, he is not sure if he needs any refills. He feels that overall, between the medications and the stimulator things were overall significantly improved. Health Status Allergies: Allergic Reactions (Selected) No Known Allergies, Allergies (1) Active Severity Reaction No Known Allergies None Documented Current medications: (Selected) Prescriptions Prescribed Handicap placard: Handicap placard, See Instructions, 1 EA, 0, Dispense 1 handicap placard Length of need: 1 year Diagnosis: Limited mobility, Supply Lyrica 300 mg Cap: 300 mg = 1 cap(s), Oral, BID, X 90 day(s), # 180 cap(s), Refills(s) 0, Pharmacy: [facility], 175.3, cm, 01/10/25 13:31:00 EDT, Height/Length Dosing, 82, kg, 01/10/25 13:31:00 EDT, Weight Dosing amitriptyline 10 mg Tab: 20 mg = 2 tab(s), Oral, Once a day (at bedtime), X 90 day(s), # 180 tab(s), Refills(s) 0, Pharmacy: [facility]/pharmacy #[id number], 175.3, cm, 01/10/25 13:31:00 EDT, Height/Length Dosing, 82, kg, 01/10/25 13:31:00 EDT, Weight Dosing Documented Medications Documented Prilosec: 20 mg, Oral, Daily, Refills(s) 0, Indigestion glipiZIDE 10 mg ER Tab: 10 mg = 1 tab(s), Oral, Daily, Refills(s) 0 metformin 1000 mg Tab: 1,000 mg = 1 tab(s), Oral, BID, Refills(s) 0, High blood sugar Problem list: All Problems NIDDM / SNOMED CT 697355119 / Confirmed Shoulder impingement syndrome / SNOMED CT [id number] / Confirmed Acid reflux / SNOMED CT 317415875 / Confirmed BPH associated with nocturia / SNOMED CT 6783305088 / Confirmed Nocturia / SNOMED CT 848173320 / Confirmed Erectile dysfunction / SNOMED CT 9902282371 / Confirmed Intermittent urinary stream / SNOMED CT 96458203 / Confirmed Urinary hesitancy / SNOMED CT 616279198 / Confirmed Feeling of incomplete bladder emptying / SNOMED CT 541274624 / Confirmed Glycosuria / SNOMED CT 98613825 / Confirmed Microscopic hematuria / SNOMED CT 915018896 / Confirmed TRI treated with BiPAP / SNOMED CT 952176055 / Confirmed TRI (obstructive sleep apnea) / SNOMED CT 271720183 / Confirmed Objective Vital Signs 05/13/2025 13:24 EDT Peripheral Pulse Rate 62 bpm Respiratory Rate 16 br/min Systolic Blood Pressure 159 mmHg HI Diastolic Blood Pressure 81 mmHg Mean Arterial Pressure, Cuff 107 mmHg General: Alert and oriented, No acute distress. Eye: Normal conjunctiva. HENT: Normocephalic, Normal hearing. Cardiovascular: No edema. Musculoskeletal Normal range of motion. Normal strength. 5/5 strength but Some color and skin changes of the left foot. The foot was cooler to touch, very tender to even light palpation and overall was painful with movement. Integumentary: Warm, Dry, [place]. Neurologic: Alert, Oriented. Psychiatric: Cooperative, Appropriate mood & affect. 14 point review of systems was negative unless otherwise noted. Impression and Plan Patient is a 59-year-old male with a past medical history significant for CRPS of the left lower extremity, left foot pain and polyneuropathy. At this time, he overall has done very well with the spinal cord stimulator trial. We will pursue the full spinal cord stimulator implant. Procedure was discussed. Risks benefits were discussed. Patient will follow-up for the spinal cord stimulator implant once authorization is obtained. In the meantime he will continue on Lyrica and amitriptyline. OARRS was reviewed. Refill sent to the pharmacy. Follow-up as above mentioned. AUDRA score: 18%. As part of providing excellent, safe, comprehensive care, the following was completed at our patient's visit: Reviewed patient's medication reconciliation. Reviewed screening for depression, screening for tobacco use, and patient's Oswestry disability index results. For concerning screenings had a discussion with the patient, provided patient education, and recommended follow-up with primary care provider when appropriate. Patient noted with risk of falling received education on strength, gait, and balance training to prevent future risk of falling. Patient was counseled on the above diagnosis and treatment, all questions were answered and patient agrees to adhere to the plan above. Risk and benefits of appropriate procedures and medications were reviewed as well with patient, who voiced understanding and agreeance. Patient was counseled on appropriate use of opioids if prescribed or renewed today and naloxone was offered to patient if opioids were prescribed or maintained at this visit. PHQ-2 scoring reviewed with patient and discussed seeking treatment for depression or mood disorder as appropriate. Patient was counseled on smoking cessation and/or continuing to abstain from nicotine/tobacco products as appropriate based on history for greater than 3 minutes if appropriate; as smoking/nicotine can contribute to increased pain overall and decreased wound healing, counseling performed for smoking cessation when appropriate for F17.200 nicotine dependence. AUDRA reviewed and discussed during encounter. Patient counseled on maintaining a healthy BMI as part of the total treatment of their pain and to reduce stress/strain on joints. Patient invited to return or call with any questions or concerns that arise. This report was transcribed using voice recognition software. Every effort was made to ensure accuracy, however, inadvertently computerized sales training representative mistakes may be present. Result Comment: Electronical ly Signed By: Larisa Juárez PA-C\.br\Date and Time Signed: 05/13/25 13:49 EDT PROGRESS NOTE-PHYSICIAN Observed: 2024 11:07 AM Status: F Source: [facility] Progress Note-Physician Patient: LIZ SOLORZANO Age: 59 years Sex: Male : 1965 Associated Diagnoses: None Author: Anthony Locke Jr., DO Postoperative Information Postoperative disposition: Postoperative disposition: To PACU. Optimetrix number: Optimetrix number [id number]. Anesthetic utilized: Monitored anesthesia care. Physical Examination Vital Signs 05/06/2025 9:18 EDT Heart Rate Monitored 71 bpm SpO2 91 % 05/06/2025 9:18 EDT Systolic Blood Pressure 102 mmHg Diastolic Blood Pressure 61 mmHg Mean Arterial Pressure, Cuff 74 mmHg 05/06/2025 9:17 EDT Heart Rate Monitored 86 bpm SpO2 98 % 05/06/2025 9:17 EDT Temperature Oral 36.5 DegC Vital signs stable. Pain Assessment: Controlled. General: Awake, Alert, Appropriate. Respiratory: Adequate air exchange, Equal bilateral chest wall expansion, Non-labored. Cardiovascular: Stable, Normal peripheral perfusion. Neurological: Normal sensory function. Assessment Anesthetic outcome No anesthetic complications noted. Review / Management Condition: Stable. Plan Transfer/Discharge: Transfer/Discharge Discharge when meets criteria. Result Comment: Electronical ly Signed By: Anthony Locke Jr., DO.br\Date and Time Signed: 05/06/25 11:08 EDT OPERATIVE REPORT Observed: 05/06/2025 9:06 AM Status: F Source: [facility] Operative Report Diagnosis: G90.532, complex regional pain syndrome of the left lower extremity Procedure: Spinal cord stimulator trial under fluoroscopic guidance with two 16 contact Infinion leads from [employer] and 2 click anchors, [id number]. Analyze neurostimulator complex, [id number]. Anesthesia: MAC Complications: None Description: After informed consent was obtained, antibiotics were administered including 2 g of cefazolin. The patient was then brought to the procedure area and placed in the prone position. Patient was placed on the monitors then monitored with anesthesia. A timeout was then performed indicating the appropriate procedure and patient. Next, the patient was prepped using a ChloraPrep solution and sterile drapes were applied, sterile gowns and gloves were utilized throughout the whole case. The needle trajectory overlying the T12/L1 interlaminar space was anesthetized with 2% lidocaine with epi, a Touhy needle was then advanced into the epidural space with confirmation using ktvo-de-docanmwozi syringe and lead was threaded at T12/L1. Next, the T12- L1 interspace was accessed a second time, with appropriate posterior positioning of each lead. 2 Touhy needles were advanced into this location. Next, each 16 contact lead was advanced to the top of T8. Testing revealed appropriate coverage of the left lower extremity. Multiple modalities were utilized to achieve appropriate coverage during analysis of the neurostimulator and complex programming, this includes lead trolling, adjustment of the lead position, and further adjustments as needed to achieve adequate coverage in this patient. Next, both Touhy needles were removed, click anchors were then utilized to suture both leads in place and this was covered with a Telfa dressing covered and antibiotic impregnated petroleum jelly. A Tegaderm was then placed to cover the area. The patient was then transported the recovery area in stable condition without apparent complication. Follow-up: We will plan to see the patient within 1 week or sooner if any issues arise, the patient agreed to adhere to the prescribed plan regarding her spinal cord stimulator trial. Result Comment: Electronical ly Signed By: Eugenio Tavares DO\.br\Date and Time Signed: 05/06/25 09:07 EDT MAIN OR INTRAOPERATIVE RECORD Observed: 05/06/2025 8:13 AM Status: F Source: [facility] Main OR Intraoperative Recor d IntraOp Document Type FTPM Summary Primary Physician: Eugenio Tavares DO Finalized Date/Time: 05/06/25 09:08:46 Pt. Name: LIZ SOLORZANO/Sex: 1965 Male Med Rec #: [id number] Physician: Eugenio Tavares DO Financial #: [id number] Pt. Type: P Room/Bed: / Admit/Disch: 05/06/25 07:03:43 - Institution: Case Times FTPM Entry 1 Patient Times In Room 05/06/25 08:10:00 Out Room 05/06/25 09:06:00 Procedure Times Start 05/06/25 08:13:00 Stop 05/06/25 09:06:00 Anesthesia Times Start 05/06/25 08:10:00 Stop 05/06/25 09:06:00 Last Modified By: Guero Peterson RN 05/06/25 09:07:43 Case Attendance FTPM Entry 1 Entry 2 Entry 3 Case Attendee Balwinder Escobar DO, Bradford A. Christman RT(R), Jennifer Role Performed Anesthesiologist Surgeon - Primary Corn Sheller Ferruler Time In 05/06/25 08:10:00 05/06/25 08:10:00 05/06/25 08:10:00 Time Out 05/06/25 09:06:00 05/06/25 09:06:00 05/06/25 09:06:00 Procedure SPINAL CORD STIMULATOR SPINAL CORD STIMULATOR SPINAL CORD STIMULATOR TRIAL(.) TRIAL(.) TRIAL(.) Comments Montse Brannon, Nealelaine Soliz, Andre Layne Last Modified By: Nicholas RN, Guero Peterson RN, Guero Monaco RN 05/06/25 09:07:43 M 05/06/25 09:07:43 M 05/06/25 09:07:43 Entry 4 Entry 5 Entry 6 Case Attendee Aurora FONSECA, Gisella Peterson RN, Anthony Wiggins Jr., DO Role Performed Scrub - Primary Consulting Database Administrator - Primary Anesthesiologist of Record Time In 05/06/25 08:10:00 05/06/25 08:10:00 05/06/25 08:10:00 Time Out 05/06/25 09:06:00 05/06/25 09:06:00 05/06/25 09:06:00 Procedure SPINAL CORD STIMULATOR SPINAL CORD STIMULATOR SPINAL CORD STIMULATOR TRIAL(.) TRIAL(.) TRIAL(.) Comments Last Modified By: Nicholas FONSECA, Guero Peterson RN, Guero Monaco RN 05/06/25 09:07:43 M 05/06/25 09:07:43 M 05/06/25 09:07:43 Perioperative Protocols FTPM Pre-Care Text: Implements protective measures prior to operative or invasive procedure, confirms identity before the operative or invasive procedure, verifies operative procedure, surgical site, and laterality Entry 1 Procedure(s) SPINAL CORD STIMULATOR Patient Identity Birthday, ID Band TRIAL(.) Verified (select at Check, Patient least 2): Participation Consents / H and P Anesthesia Consent, Operative Site Present Verified H&P, Surgery/Procedure Marking Verified Consent Surgical Site Yes Laterality Verified Yes Verified Procedure Verified Yes Correct Patient Yes Position Verified Availability Equipment, Implant, Prep Dry Yes Verified (If Medication, X-ray Applicable) PreOp Antibiotic Yes Time Out Nicholas FONSECA, Aurora Shirley RN, Peter Rizzo DO, Lian Ram RT(R), Zaina Rodriguez John C. Time Out Complete 05/06/25 08:10:00 Outcomes Met? Yes Last Modified By: Guero Peterson RN 05/06/25 08:24:21 Post-Care Text: The patient is free from signs and symptoms of injury caused by extraneous objects Allergy Information FTPM Pre-Care Text: Verifies allergies Entry 1 Allergies Reviewed? Yes Allergies Reviewed Self/Patient With Outcomes Met? Yes Last Modified By: Guero Peterson RN 05/06/25 08:24:32 Post-Care Text: The patient received appropriate medication(s) safely administered during the perioperative period Surgical Procedures FTPM Entry 1 Procedure Description Procedure SPINAL CORD STIMULATOR Modifiers . TRIAL Surgeon Description SCS TRIAL Primary Procedure Yes Primary Surgeon Eugenio Tavares DO 05/06/25 08:13:00 Stop 05/06/25 09:06:00 Anesthesia Type MAC Surgical Service Pain Management Wound Class 1 - Clean Last Modified By: Guero Peterson RN 05/06/25 09:07:45 General Case Data FTPM Pre-Care Text: Classifies surgical wound, implements aseptic technique, initiates traffic control Entry 1 Case Information OR Pain Proc Room Case Level Level 2 Wound Class 1 - Clean Specialty Pain Management ASA Class 3 Preop Diagnosis G90.522 Postop Same As Preop Yes Postop Diagnosis G90.522 Outcomes Met? Yes Last Modified By: Guero Peterson RN 05/06/25 08:25:00 Post-Care Text: The patient is free from signs and symptoms of infection Skin Assessment (Pre Procedure) FTPM Pre-Care Text: Implements protective measures to prevent skin/ tissue injury due to thermal or mechanical sources Evaluates for signs and symptoms of physical injury to skin and tissue Entry 1 Skin Integrity Intact, [place], Warm, & Skin Abnormality No Dry Outcomes Met? Yes Last Modified By: Guero Peterson RN 05/06/25 08:25:08 Post-Care Text: The patient is free from signs and symptoms of injury caused by extraneous objects Patient Positioning FTPM Pre-Care Text: Identifies physical alterations that require additional precautions for procedure-specific positioning, verifies presence of prosthetics or corrective devices, positions the patient, evaluates the patient for signs and symptoms of injury as a result of positioning Entry 1 Procedure SPINAL CORD STIMULATOR Body Position Prone TRIAL(.) Feet Uncrossed? Yes Left Arm Position Resting at Side Right Arm Position Resting at Side Left Leg Position Extended Right Leg Position Extended Positioning Device Pillow Under Head Large, Safety Strap, Pillow Large Under Knees Press Points Checked Yes By Guero Peterson RN, Gower CAA, John C. Outcomes Met? Yes Last Modified By: Guero Peterson RN 05/06/25 08:25:34 Post-Care Text: The patient is free from signs and symptoms of injury related to positioning Transport To OR FT Pre-Care Text: Transports according to individual needs. Evaluates for signs and symptoms of skin and tissue injury as a result of transfer or transport Entry 1 Via Cart By Guero Peterson RN Safety Precautions Safety Strap, Side Outcomes Met? Yes Rails Up Last Modified By: Guero Peterson RN 05/06/25 08:25:49 Post-Care Text: The patient is free from signs and symptoms of injury related to transfer/transport Skin Prep FTPM Pre-Care Text: Performs skin preparations Entry 1 Procedure SPINAL CORD STIMULATOR Prep Area BLOCK INJECTION SITE TRIAL(.) Prep Agents Chloraprep/Dry Prior to Start Dry Time 05/06/25 08:10:00 Draping Stop Dry Time 05/06/25 08:13:00 Hair Removal Methods Not Indicated By Gisella Simon RN Outcomes Met? Yes Last Modified By: Guero Peterson RN 05/06/25 08:27:11 Post-Care Text: The patient is free from signs and symptoms of infection Departure From OR FT Pre-Care Text: Transports according to individual needs. Evaluates for signs and symptoms of skin and tissue injury as a result of transfer or transport. Entry 1 Via Cart Safety Precautions Safety Strap, Side Rails Up PostOp Destination PACU Transported By Guero Peterson RN Patient Status Stable Report Given Amy Rueda RN To/Hand Off Communication Skin. Condition Dry, Intact Airway Maintenance Oxygen in Use? No Outcomes Met? Yes Last Modified By: Guero Peterson RN 05/06/25 08:35:59 Post-Care Text: The patient is free from signs and symptoms of injury related to transfer/transport Dressing/Packing FTPM Pre-Care Text: Administers care to wound sites Entry 1 Type Dressing Site and Details 4x4 and opsite with bacitracin with 2-0 silk stitch Outcomes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 concerns that arise. Result Comment: Electronical ly Signed By: Eugenio Tavares DO.charles\Date and Time Signed: 08/22/24 14:05 EST CONSULTATION NOTE Observed: 07/23/2024 8:28 AM Status: C Source: [facility] Consultation Note Patient: LIZ SOLORZANO Age: 58 years Sex: Male : 1965 Associated Diagnoses: None Author: Larisa Juárez PA-C Subjective Chief complaint 07/23/2024 8:09 EST L foot pain . Patient is a 58-year-old male. He presents today for follow-up after undergoing an EMG. He continues to have left foot pain. He rates it a 7/10. He states that the whole foot hurts but the area that hurts the most is the left medial malleolus. It is a stabbing type discomfort. It is always present. He states that something has to be done. He has seen 2 podiatrists and orthopedic doctor and now our services. He states that he has seen 5 doctors for this and nothing has made his pain any better. He is using gabapentin 900 mg 3 times a day without any improvement. He is desperate for something to be done. He states that something has to be done. He needs relief of the pain. He has done therapy. He has tried medications. He wonders about a block or some sort of treatment to get him long-term relief. Health Status Allergies: Allergic Reactions (Selected) No Known Allergies, Allergies (1) Active Severity Reaction No Known Allergies None Documented Current medications: (Selected) Prescriptions Prescribed Colace 100 mg Cap: 100 mg = 1 cap(s), Oral, BID, # 20 cap(s), Refills(s) 0, [id number] 175.3, cm, 05/24/24 9:08:00 EDT, Height/Length Dosing, 82.7, kg, 05/24/24 9:08:00 EDT, Weight Dosing Percocet 5 mg-325 mg oral tablet: See Instructions, 50 tab(s), Refill(s) 0, Take one to two oral every 4 hours for knee replacement surgical pain., [facility]/pharmacy #[id number], 175.3, cm, 05/24/24 9:08:00 EDT, Height/Length Dosing, 82.7, kg, 05/24/24 9:08:00 EDT, Weight Dosing pregabalin 225 mg oral capsule: 225 mg = 1 cap(s), Oral, BID, # 60 cap(s), Refills(s) 1, Pharmacy: [facility]/pharmacy #[id number], 175.3, cm, 07/23/24 8:15:00 EST, Height/Length Dosing, 84, kg, 07/23/24 8:15:00 EST, Weight Dosing Documented Medications Documented [place]-3 Fish Oil: 1,000 mg, Oral, Daily, Refills(s) 0, High cholesterol Prilosec: 20 mg, Oral, Daily, Refills(s) 0, Indigestion metformin 1000 mg Tab: 1,000 mg = 1 tab(s), Oral, BID, Refills(s) 0, High blood sugar Problem list: All Problems NIDDM / SNOMED CT 530698435 / Confirmed Shoulder impingement syndrome / SNOMED CT [id number] / Confirmed Acid reflux / SNOMED CT 709808772 / Confirmed BPH associated with nocturia / SNOMED CT 6133352844 / Confirmed Nocturia / SNOMED CT 602850698 / Confirmed Erectile dysfunction / SNOMED CT 4117926198 / Confirmed Intermittent urinary stream / SNOMED CT 88577344 / Confirmed Urinary hesitancy / SNOMED CT 191767111 / Confirmed Feeling of incomplete bladder emptying / SNOMED CT 634804355 / Confirmed Glycosuria / SNOMED CT 97163310 / Confirmed Microscopic hematuria / SNOMED CT 161894704 / Confirmed Objective Vital Signs 07/23/2024 8:09 EST Peripheral Pulse Rate 69 bpm Respiratory Rate 14 br/min Systolic Blood Pressure 141 mmHg HI Diastolic Blood Pressure 70 mmHg Mean Arterial Pressure, Cuff 94 mmHg General: Alert and oriented, No acute distress. Eye: Normal conjunctiva. HENT: Normocephalic, Normal hearing. Cardiovascular: No edema. Musculoskeletal Normal range of motion. Normal strength. 5/5 strength Integumentary: Warm, Dry, [place]. Neurologic: Alert, Oriented. Psychiatric: Cooperative, Appropriate mood & affect. 14 point review of systems was negative unless otherwise noted. Results Review Bilateral lower extremity EMG reviewed showing polyneuropathy Impression and Plan Patient is a 58-year-old male with a past medical history significant for left foot pain and neuropathy. Patient has left foot pain that he rates a 7/10. Affects his ambulatory status. Affects his quality life and affects his activities. Affects his ability to do things he wants to do throughout the day. At this time, based on the pain he is experiencing, the EMG results and the intense pain he is experiencing in certain areas of the foot although all the foot is involved we are going to pursue a left saphenous versus superior peroneal nerve block. I would like to review his EMG, his pain pattern and his case with Dr. Tavares prior to deciding on which nerve to pursue but based on the above-mentioned things we will pursue a left peripheral nerve block. We are going to discontinue the gabapentin and trial Lyrica. 225 mg twice daily. OARRS reviewed. Prescription sent. Follow-up 2 weeks after the injection for reevaluation. Call the clinic sooner if necessary. This case was further discussed with Dr. Tavares. At this time, he did not feel that a peripheral nerve block would be of the best benefit. We discussed the possibility of spinal cord stimulator. We will contact the patient to see if he would like to pursue this. Result Comment: Electronical ly Signed By: Larisa Juárez PA-C\.br\Date and Time Signed: 07/23/24 12:59 EST ALLERGIES DATE TYPE / CODE NAME / CODE REACTION SEVERITY SOURCE /[id number](SNOMED CT) No Known Allergies [facility] ENCOUNTERS ADMIT/DISCHARGE ACCOUNT NUMBER ADMITTING ENCOUNTER CLASS LOCATION SOURCE 06/18/2025/06/18/20 [id number] Ambulatory Building:[facility] 06/18/2025/06/18/20 [id number] Ambulatory Building:[facility] 06/18/2025/06/18/20 [id number] Ambulatory Building:[facility] 06/10/2025/06/10/20 [id number] Eugenio Tavares Ambulatory [facility] :FT PMCRoom: EX2 [facility] 06/03/[id number] Ambulatory [facility] :FT OPS [facility] 06/03/2025/06/03/20 [id number] Ambulatory [facility]FT OPS [facility] 05/27/2025/05/27/20 [id number] Eugenio Tavares Ambulatory [facility]FT LAB [facility] 05/27/2025/05/27/20 [id number] Eugenio Tavares Ambulatory [facility] :FT [facility] 05/13/2025/05/13/20 [id number] Larisa Juárez Ambulatory [facility] :FT PMCRoom: DISCH [facility] 05/06/[id number] Ambulatory [facility] :FT [facility] 05/06/2025/08/18 [id number] Ambulatory [facility] :FT OPS [facility] 04/29/2025/04/29/20 [id number] Ambulatory [facility] ClinicRoom: CD:[id number] [facility] 04/29/2025/04/29/20 [id number] Eugenio Tavares Ambulatory [facility] :FT LAB [facility] 04/29/[id number] Eugenio Tavares Ambulatory [facility] :FT LAB [facility] 04/29/2025/04/29/20 [id number] Eugenio Tavares Ambulatory [facility] :FT [facility] 03/24/2025/03/24/20 [id number] Ambulatory [facility] :FT Sleep Lab [facility] 01/10/2025/01/11/20 [id number] Eugenio Tavares Ambulatory [facility] :FT PMCRoom: [facility] 10/11/2024/10/11/19 [id number] Ambulatory Building:[facility]O [facility] 10/11/2024/10/11/19 [id number] Ambulatory Building:[facility] 08/30/2024/08/30/20 [id number] Eugenio Tavares Ambulatory [facility] :FT [facility] 08/22/2024/08/22/20 [id number] Eugenio Tavares Ambulatory [facility] :FT PMCRoom: [facility] 07/30/2024/07/30/20 24 [id number] Ambulatory Building:ST NEURO [facility] 07/23/2024/07/23/20 24 [id number] Larisa Juárez Ambulatory [facility] :FT PMCRoom: EX2 [facility] 07/16/2024/07/16/20 24 [id number] Eugenio Tavares Ambulatory [facility] :FT.Neurolog y Clinic [facility] 07/10/2024/07/10/20 24 [id number] Ambulatory Building:[facility] 07/10/2024/07/10/20 24 [id number] Ambulatory Building:[facility] 07/04/2024/07/04/20 24 [id number] Ambulatory Building:N[facility] S SWS PTH [facility] 06/26/2024/06/26/20 24 [id number] Ambulatory Building:N[facility] S SWS PTH [facility] 06/20/2024/06/20/20 24 [id number] Ambulatory Building:N[facility] S SWS PTH [facility] PAYERS ENCOUNTER GUARANTOR PAYER SUBSCRIBER SOURCE 06/18/2025 LIZ [place]DUZCO: [place] [address]Ika: () Primary Insurance:GENERIC COMMERCIALPolicy Number: [id number] Date:2024-09-19 DODIE MCLAINB: [id number] [place] [address] [facility] 06/18/2025 Secondary Insurance:MEDICAL MUTUALPolicy Number: [id number] Date:2024-11-17 DODIE MCLAINB: [id number] [place] [address] [facility] 06/18/2025 LIZ SHAHB: [id number] [place] [address]Srq: () Primary Insurance:GENERIC COMMERCIALPolicy Number: [id number] Date:2024-09-19 DODIE MCLAINB: [id number] [place] [address] [facility] 06/18/2025 Secondary Insurance:MEDICAL MUTUALPolicy Number: [id number] Date:2024-11-17 DODIE MCLAINB: [id number] [place] [address] [facility] 06/18/2025 LIZ SHAHB: [id number] [place] [address]Dar: (HP) Primary Insurance:GENERIC COMMERCIALPolicy Number: [id number] Date:2024-09-19 DODIE ANDERSON VIDOB: [id number] [place] [address] [facility] 06/18/2025 Secondary Insurance:MEDICAL MUTUALPolicy Number: [id number] Date:2024-11-17 DODIE ANDERSON VIDOB: [id number] [place] [address] [facility] 06/10/2025 LIZ SHAHB: [place] AVETel: [phone]~~[phone] 06 (HP) Primary Insurance:MEDICAL MUTUALPolicy Number: Effective Date:[id number] [address]GU: DODIE [facility]ERSON [facility] 06/03/2025 LIZ SHAHB: [id number] [place] AV[place]el: [phone]~~[phone] 06 (HP) Primary Insurance:MEDICAL MUTUALPolicy Number: Effective Date:[id number] [address]XR: DODIE ANDERSON [facility] 05/27/2025 LIZ SHAHB: [id number] [place] AVETel: [phone]~~[phone] 06 (HP) Primary Insurance:MEDICAL MUTUALPolicy Number: Effective Date:[id number] [address]DF: DODIE [facility]ERSON [facility] 05/27/2025 LIZ SHAHB: [id number] [place] AVETel: [phone]~~[phone] 06 (HP) Primary Insurance:MEDICAL MUTUALPolicy Number: Effective Date:[id number] [address]YH: DODIE ANDERSON [facility] 05/13/2025 LIZ SHAHB: [id number] [place] AV[address]el: [phone]~~[phone] 06 (HP) Primary Insurance:MEDICAL MUTUALPolicy Number: Effective Date:5303-82-05MK [address] [address]MS: DODIE ANDERSON [facility] 05/06/2025 LIZ SHAHB: [place] AV[address]el: [phone]~~[phone] 06 (HP) Primary Insurance:MEDICAL MUTUALPolicy Number: Effective Date:4965-53-32VY [address] [address]KS: DODIE ANDERSON [facility] 04/29/2025 LIZ SHAHB: [id number] [place] AV[address]el: [phone]~~[phone] 06 (HP) Primary Insurance:MEDICAL MUTUALPolicy Number: [id number] Date:8043-62-59PQ [address] [address]US: DODIE ANDERSON [facility] 04/29/2025 LIZ SHAHB: [id number] [place] AV[place]el: [phone]~~[phone] 06 (HP) Primary Insurance:MEDICAL MUTUALPolicy Number: Effective Date:3007-47-02AQ [address] [address]SS: DODIE ANDERSON [facility] 04/29/2025 LIZ SHAHB: [id number] [place] AV[place]el: [phone]~~[phone] 06 (HP) Primary Insurance:MEDICAL MUTUALPolicy Number: Effective Date:2701-63-80QQ [address] [address]OP: DODIE ANDERSON [facility] 03/24/2025 LIZ VERDUZCO: [id number] [place] RDTel: [phone]~~[phone] 06 (HP) Primary Insurance:MEDICAL MUTUALPolicy Number: Effective Date:[id number] [address] [address]LM: DODIE BRADLEY [facility] 01/10/2025 LIZ SHAHB: [facility] AVETel: [phone]~~[phone] 06 (HP) Primary Insurance:MEDICAL MUTUALPolicy Number: Effective Date:2410-43-88GZ [address] [address]IX: [facility] 10/11/2024 LIZ SHAHB: [id number] [place], [place] [address]Gpf: (HP) Primary Insurance:PHCSPolicy Number: [id number] Date:2024-01-18 - 2024-01-18 LIZ SHAHB: [id number] MIYA RDSMITOH[facility] [place] [address] [facility] 10/11/2024 Secondary Insurance:GENERIC COMMERCIALPolicy Number: [id number] Date:2024-01-182024-07-16 LIZ SHAHB: [id number] MIYA R[facility]OH[facility] [place] [place] [address] [facility] 10/11/2024 LIZ SHAHB: [id number] MIYA RDSMITHVPROMED[facility] [place], [place] [address]Grb: (HP) Primary Insurance:PHCSPolicy Number: [id number] Date:2024-01-182024-01-18 LIZ SHAHB: [id number] MI[place] RDSMITHVPROMEDICA [place] [address] [facility] 10/11/2024 Secondary Insurance:GENERIC COMMERCIALPolicy Number: [id number] Date:2024-01-182024-07-16 LIZ SHAHB: [id number] [place] [address] [facility] 08/30/2024 LIZ Santoyo ALYSSAB: [place]EV[place] RDTel: [phone]~~[phone] 06 (HP) Primary Insurance:SELF PAYPolicy Number: Effective Date:2024-08-24 LIZ LANCASTER [facility] 08/22/2024 LIZ TIWARIGIBRANB: [place]EV[place] RDTel: [phone]~~[phone] (HP) Primary Insurance:SELF PAYPolicy Number: Effective Date:2024-07-30 LIZ LANCASTER [facility] 07/30/2024 LIZ Santoyo ALYSSAB: [place] [id number]: (HP) Primary Insurance:PHCSPolicy Number: [id number] Date:2024-01-182024-01-18 LIZ Santoyo ALYSSAB: [id number] [place] [address] [facility] 07/30/2024 Secondary Insurance:GENERIC COMMERCIALPolicy Number: [id number] Date:2024-01-18 - 2024-07-16 LIZ Santoyo ALYSSAB: [id number] [place] [address] [facility] 07/23/2024 LIZ Santoyo ALYSSAB: [place] RDTel: [phone]~~[phone] (HP) Primary Insurance:SELF PAYPolicy Number: Effective Date:2024-07-27 LIZ LANCASTER [facility] 07/16/2024 LIZ Yarelis ALYSSAB: [place] RDTel: [phone]~~[phone] (HP) Primary Insurance:SELF PAYPolicy Number: Effective Date:2024-07-16 DODIE JUSTIN [facility]St[facility] 07/10/2024 LIZ SHAHB: [place] [phone]: (HP) Primary Insurance:GENERIC COMMERCIALPolicy Number: [id number] Date:2024-01-18 LIZ SOLORZANODOB: [id number] [place] [address] [facility] 07/10/2024 LIZ SOLORZANODOB: [id number] [place] [address]Wyf: (HP) Primary Insurance:GENERIC COMMERCIALPolicy Number: [id number] Date:2024-01-18 LIZ Santoyo RASHADDOB: [id number] [place] [address] [facility] 07/04/2024 LIZ Yarelis RASHADDOB: [id number] [place] [address]Cpg: (HP) Primary Insurance:GENERIC COMMERCIALPolicy Number: [id number] Date:2024-01-18 LIZ TIWARIGIBRANB: [id number] [place] [address] [facility] 06/26/2024 LIZ Santoyo ALYSSAB: [id number] [place] [address]Znv: (HP) Primary Insurance:GENERIC COMMERCIALPolicy Number: [id number] Date:2024-01-18 LIZ Yarelis RASHADDOB: [id number] [place] [phone] [facility] 06/20/2024 LIZ SOLORZANODOB: [id number] [place] [address]Vlp: (HP) Primary Insurance:GENERIC COMMERCIALPolicy Number: [id number] Date:2024-01-18 LIZ SHAHB: [id number] [place] [address] [facility]
--- OUTSIDE RECORDS SUMMARY | 2025-06-18 10:30 | XMS_ITS | Encounter Summary ---
Author Organization [facility] Address [address] [place] [address] Care Team Providers Care Technical Manager Name Role Phone KaelMary Kendell CALENDER MACHINE OPERATOR Primary Care Provider [phone] Reason for Visit * Reason Comments Pain Pain Encounter Details Date Type Department Care Team (Late st Contact Info) Description 06/18/2025 10:30 AM EDT [facility] [address] [place] [address] Herbert Lombardi, DO [address] [place] [address] Status post left knee replacement (Primary Dx); Left hip pain Social History Tobacco Use Types Packs/Day Years Used Date Smoking Tobacco: Never Smokeless Tobacco: Former Snuff Tobacco Cessation:Counseling Given: Not Answered Comments:10 plus years tobacco free Alcohol Use Standard Drinks/Week Comments Not Currently 4 (1 standard drink = 0.6 oz pur e alcohol) Sex and Gender Information Value Date Recorded Sex Assigned at Not on file Legal Sex Male 7:01 PM EDT Gender Identity Not on file Sexual Orientation Not on file documented as of this encounter Last Filed Vital Signs Vital Sign Reading Time Taken Comments Blood Pressure - - Pulse - - Temperature - - Respiratory Rate - - Oxygen Saturation - - Inhaled Oxygen Concentration - - Weight 97.5 kg (215 lb) 06/18/2025 10:12 AM EDT Height 175.3 cm (5' 9 ) 06/18/2025 10:12 AM EDT Body Mass Index 31.75 06/18/2025 10:12 AM EDT documented in this encounter Plan of Treatment Pending Results Name Type Priority Associated Diagnoses Date /Time XR hip left 2 or 3 views Imaging Routine Left hip pain 06/18/2025 7:51 AM EDT XR knee 3 views left Imaging Routine Status post left knee replacement 06/18/2025 7:51 AM EDT documented as of this encounter Visit Diagnoses Diagnosis Status post left knee replacement- Primary Left hip pain Pain in joint, pelvic region and thigh documented in this encounter Care Teams Technical Manager Relationship Specialty Start Date End Date Mary Scruggs, CALENDER MACHINE OPERATOR [address] [place] [address] PCP - General Family Medicine 06/18/25 documented as of this encounter
--- OUTSIDE RECORDS SUMMARY | 2025-06-18 12:28 | XMS_ITS | Encounter Summary ---
Author Organization [facility] Address [address] [place] [address] Care Team Providers Care Motor Boss Name Role Phone Mely Vasquez MD Primary Care Provider [phone] Mary Scruggs MEDICAL DOCTOR NUCLEAR MEDICINE Primary Care Provider [phone] Encounter Details Date Type Department Care Team (Late st Contact Info) Description 02/14/2024 Abstract [facility] [address] [place] [id number] Naima Finch, RN [address] [place], [place] Social History Tobacco Use Types Packs/Day Years [...] as of this encounter Plan of Treatment Not on file documented as of this encounter Visit Diagnoses Not on filedocumented in this encounter Care Teams Motor Boss Relationship Specialty Start Date End Date Mely Vasquez MD PCP - General Family Medicine 03/30/23 06/17/25 Mary Scruggs, MEDICAL DOCTOR NUCLEAR MEDICINE [address] [id number] PCP - General Family Medicine 06/18/25 documented as of this encounter
--- OUTSIDE RECORDS SUMMARY | 2025-06-18 12:28 | XMS_ITS | Encounter Summary ---
Author Organization [facility] Address [address] [place] [address] Care Team Providers Care Coroner Technician Name Role Phone Mely Vasquez MD Primary Care Provider [phone] Mary Scruggs NP Primary Care Provider [phone] Encounter Details Date Type Department Care Team (Late st Contact Info) Description 06/11/2024 Clinisync Result Encounter [facility] External Department Unsolicited Herbert Lombardi, DO [address] [place] [address] Social History Tobacco Use Types Packs/Day Years [...] on file documented as of this encounter Procedures Procedure Name Priority Date/Time Associated Diagnosis Comments XR KNEE 1 OR 2 VIEWS LEFT 06/11/2024 11:33 AM EDT documented in this encounter Results * XR KNEE 1 OR 2 VIEWS LEFT (06/11/2024 11:33 AM EDT) Anatomical Region Laterality Modality Other 06/11/2024 11:3 3 AM EDT Narrative 06/12/2024 8:34 AM EDT Exam Date/Time: 06/11/2024 11:44 EDT Reason for Exam: Post-op evaluation;Other (please specify) Report IMPRESSION: LEFT TOTAL KNEE REPLACEMENT. CLINICAL INFORMATION: Postop. COMMENT: 2 views. There is a left total knee prosthesis, in good position and alignment. There is gas in the soft tissues from the surgery. Ordering Provider: Herbert Lombardi FINAL REPORT Dictated: 06/12/2024 8:31 am Siddhartha Gonzalez M.D. Signed (Electronic Signature): 06/12/2024 8:31 am Signed by: Siddhartha Gonzalez M.D. Transcribed by: DESIREE Technologist: BLAS Technical Comments Radiation Dose: Ka,r in mGy = na DAP = na Procedure Note Radiology, Radiologist, - 06/12/2024 Exam Date/Time: 06/11/2024 11:44 EDT Reason for Exam: Post-op evaluation;Other (please specify) Report IMPRESSION: LEFT TOTAL KNEE REPLACEMENT. CLINICAL INFORMATION: Postop. COMMENT: 2 views. There is a left total knee prosthesis, in good positionand alignment. There is gas in the soft tissues from the surgery. Ordering Provider: Herbert Lombardi FINAL REPORT Dictated: 06/12/2024 8:31 am Siddhartha Gonzalez M.D. Signed (Electronic Signature): 06/12/2024 8:31 am Signed by: Siddhartha Gonzalez M.D. Transcribed by: DESIREE Technologist: BLAS Technical Comments Radiation Dose: Ka,r in mGy = na DAP = na Herbert Lombardi DO [facility] Final Resu lt documented in this encounter Visit Diagnoses Not on filedocumented in this encounter Care Teams Coroner Technician Relationship Specialty Start Date End Date Mely Vasquez MD PCP - General Family Medicine 03/30/23 06/17/25 Mary Scruggs NP [address] [place] [address] PCP - General Family Medicine 06/18/25 documented as of this encounter
--- OUTSIDE RECORDS SUMMARY | 2025-06-18 12:28 | XMS_ITS | Encounter Summary ---
Author Organization [facility] Address [address] [place] [address] Care Team Providers Care Drug Safety Associate Name Role Phone Mely Vasquez MD Primary Care Provider [phone] Mary Scruggs NP Primary Care Provider [phone] Encounter Details Date Type Department Care Team (Late st Contact Info) Description 06/18/2024 Orders Only [facility] [address] [place] [place] [id number] Herbert Lombardi, [address] [place] [address] Primary osteoarthritis of left knee (Primary Dx) Social History Tobacco Use Types Packs/Day Years [...] as of this encounter Visit Diagnoses Diagnosis Primary osteoarthritis of left knee- Primary documented in this encounter Care Teams Drug Safety Associate Relationship Specialty Start Date End Date Mely Vasquez MD PCP - General Family Medicine 03/30/23 06/17/25 Mary Scruggs, NEEDLE SETTER [address] [place] [address] PCP - General Family Medicine 06/18/25 documented as of this encounter
--- OUTSIDE RECORDS SUMMARY | 2025-06-18 12:30 | XMS_ITS | Encounter Summary ---
Author Organization [facility] Address [address] [place] [address] Care Team Providers Care Axle Polisher Name Role Phone Mely Vasquez MD Primary Care Provider [phone] Mary Scruggs NP Primary Care Provider [phone] Reason for Visit * Reason Onset Date Comments MRI order 08/09/2023 Encounter Details Date Type Department Care Team (Late st Contact Info) Description 08/09/2023 Telephone [facility] [address] [place] [address] Joselyn Lopez MA MRI order Social History Tobacco Use Types Packs/Day Years [...] on file Sexual Orientation Not on file COVID-19 Exposure Response Date Recorded In the last 10 days, have yo u been in contact with someone who was confirmed or suspected to have Coronavirus/COVID-19? No / Unsure 07/20/2023 8:36 AM EDT documented as of this encounter Miscellaneous Notes * Telephone Encounter - Joselyn Lopez MA - 08/09/2023 1:45 PM EST Per office note on 07/27/23, follow up MRI is suggested. Patient would like MRI to be done on the last week of August. Can you please put an order in for the MRI LT foot? Thank you! documented in this encounter Plan of Treatment Not on file documented as of this encounter Visit Diagnoses Not on filedocumented in this encounter Care Teams Axle Polisher Relationship Specialty Start Date End Date Mely Vasquez MD PCP - General Family Medicine 03/30/23 06/17/25 Mary Scruggs NP [address] [place] [address] PCP - General Family Medicine 06/18/25 documented as of this encounter
--- OUTSIDE RECORDS SUMMARY | 2025-06-18 12:30 | XMS_ITS | Encounter Summary ---
Author Organization [facility] Address [address] [place] [address] Care Team Providers Care Manager Case Name Role Phone Mely Vasquez MD Primary Care Provider [phone] Mary Scruggs NP Primary Care Provider [phone] Encounter Details Date Type Department Care Team (Late st Contact Info) Description 07/22/2023 Abstract [facility] [address] [place] [place] [id number] Dilan Benson DO [address] [place] [address] Social History Tobacco Use Types Packs/Day Years [...] AM EDT documented as of this encounter Plan of Treatment Not on file documented as of this encounter Visit Diagnoses Not on filedocumented in this encounter Care Teams Manager Case Relationship Specialty Start Date End Date Mely Vasquez MD PCP - General Family Medicine 03/30/23 06/17/25 Mary Scruggs NP [address] [place] [address] PCP - General Family Medicine 06/18/25 documented as of this encounter
--- OUTSIDE RECORDS SUMMARY | 2025-06-18 12:30 | XMS_ITS | Encounter Summary ---
Author Organization [facility] Address [address] [place] [address] Care Team Providers Care Solar Installation Crew Supervisor Name Role Phone Mely Vasquez MD Primary Care Provider [phone] Mary Scruggs NP Primary Care Provider Encounter Details Date Type Department Care Team (Late st Contact Info) Description 11/30/2023 Abstract [facility] [address] [place] [phone] Callum Scruggs DO [address] [place] [address] Social History Tobacco Use Types Packs/Day Years [...] on filedocumented in this encounter Care Teams Solar Installation Crew Supervisor Relationship Specialty Start Date End Date Mely Vasquez MD PCP - General Family Medicine 03/30/23 06/17/25 Mary Scruggs, GAGAN [address] [place] [address] PCP - General Family Medicine 06/18/25 documented as of this encounter
--- OUTSIDE RECORDS SUMMARY | 2025-06-18 12:30 | XMS_ITS | Encounter Summary ---
Author Organization [facility] Address [address] [place] [address] Care Team Providers Care Mold Repair Technician Name Role Phone Mely Vasquez MD Primary Care Provider [phone] Mary Scruggs NP Primary Care Provider [phone] Encounter Details Date Type Department Care Team (Late st Contact Info) Description 10/20/2023 Abstract [facility] [address] [facility] [place] [phone] Herbert Lombardi, [address] [place] [address] Social History Tobacco Use Types [...] on filedocumented in this encounter Care Teams Mold Repair Technician Relationship Specialty Start Date End Date Mely Vasquez MD PCP - General Family Medicine 03/30/23 06/17/25 Mary Scruggs, HE[employer] SCI[employer]ES DEAN [address] [place] [address] PCP - General Family Medicine 06/18/25 documented as of this encounter
--- OUTSIDE RECORDS SUMMARY | 2025-06-18 12:30 | XMS_ITS | Encounter Summary ---
Author Organization [facility] Address [address] [place] [address] Care Team Providers Care Beef Specialist Name Role Phone Mary Scruggs POULTRY HELPER Primary Care Provider [phone] Encounter Details Date Type Department Care Team (Latest Contact Info) Description 06/18/2025 Travel Social History Tobacco Use Types Packs/Day Years [...] on filedocumented in this encounter Care Teams Beef Specialist Relationship Specialty Start Date End Date Mary Scruggs, POULTRY HELPER [address] [place] [address] PCP - General Family Medicine 06/18/25 documented as of this encounter
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
--- OUTSIDE RECORDS SUMMARY | 2025-06-18 12:30 | XMS_ITS | Encounter Summary ---
Author Organization [facility] Address [address] [place] [address] Care Team Providers Care Clinical Data Management Manager Name Role Phone Mely Vasquez MD Primary Care Provider [phone] Mary Scruggs NP Primary Care Provider [phone] Encounter Details Date Type Department Care Team (Late st Contact Info) Description 09/30/2023 Clinisync Result Encounter [facility] External Department Unsolicited Andres Goodrich, DPM [facility] [address] [place] [address] Social History Tobacco Use Types Packs/Day Years [...] Diagnosis Comments MRI FOOT W/O CONTRAST LEFT 09/30/2023 6:49 PM EST documented in this encounter Results * MRI FOOT W/O CONTRAST LEFT (09/30/2023 6:49 PM EST) Anatomical Region Laterality Modality Other 09/30/2023 6:4 9 PM EST Narrative 10/03/2023 10:44 AM EST Exam Date/Time: 09/30/2023 20:16 EST Reason for Exam: [id number] Report IMPRESSION: MILD SOFT TISSUE EDEMA SURROUNDING THE DISTAL SECOND AND THIRD METATARSALS MAY BE DUE TO MUSCLE STRAIN OR EARLY SECOND/THIRD METATARSAL STRESS REACTION EXAM: MRI Foot w/o Contrast Left HISTORY: Foot pain COMPARISON : MRI of the foot 04/13/2023 TECHNIQUE: Multiplanar multisequence MRI of the foot was performed without contrast. FINDINGS: No evidence of recent fracture. Mild degenerative changes of the midfoot and forefoot. Mild soft tissue edema surrounds the mid and distal second and third metatarsals. Flexor and extensor tendons are intact. Achilles tendon and plantar fascia is intact. Lisfranc ligament is intact. No soft tissue mass or fluid collection. Ordering Provider: Andres Goodrich FINAL REPORT Dictated: 10/03/2023 10:41 am Franco Bocanegra DO Signed (Electronic Signature): 10/03/2023 10:41 am Signed by: Franco Bocanegra DO Transcribed by: DESIREE Technologist: DEJA Technical Comments None Procedure Note Radiology, Radiologist, MD - 10/03/2023 Exam Date/Time: 09/30/2023 20:16 EST Reason for Exam: [id number] Report IMPRESSION: MILD SOFT TISSUE EDEMA SURROUNDING THE DISTAL SECOND AND THIRD METATARSALSMAY BE DUE TO MUSCLE STRAIN OR EARLY SECOND/THIRD METATARSAL STRESS REACTION EXAM: MRI Foot w/o Contrast Left HISTORY: Foot pain COMPARISON : MRI of the foot 04/13/2023 TECHNIQUE: Multiplanar multisequence MRI of the foot was performed withoutcontrast. FINDINGS: No evidence of recent fracture. Mild degenerative changes of the midfootand forefoot. Mild soft tissue edema surrounds the mid and distal second andthird metatarsals. Flexor and extensor tendons are intact. Achilles tendon andplantar fascia is intact. Lisfranc ligament is intact. No soft tissue mass orfluid collection. Ordering Provider: Andres Goodrich FINAL REPORT Dictated: 10/03/2023 10:41 am Franco Bocanegra DO Signed (Electronic Signature): 10/03/2023 10:41 am Signed by: Franco Bocanegra DO Transcribed by: DESIREE Technologist: DEJA Technical Comments None Andres Goodrich DPM [facility] Final Result documented in this encounter Visit Diagnoses Not on filedocumented in this encounter Care Teams Clinical Data Management Manager Relationship Specialty Start Date End Date Mely Vasquez MD PCP - General Family Medicine 03/30/23 06/17/25 Mary Scruggs, SOFTWARE CLERK [address] [place] [address] PCP - General Family Medicine 06/18/25 documented as of this encounter
--- OUTSIDE RECORDS SUMMARY | 2025-06-18 12:30 | XMS_ITS | Encounter Summary ---
Author Organization [facility] Address [address] [place] [address] Care Team Providers Care Flume Tender Name Role Phone Mely Vasquez MD Primary Care Provider [phone] Encounter Details Date Type Department Care Team (Latest Contact Info) Description 06/11/2025 Travel Social History Tobacco Use Types Packs/Day [...] on filedocumented in this encounter Care Teams Flume Tender Relationship Specialty Start Date End Date Mely Vasquez MD PCP - General Family Medicine 03/30/23 06/17/25 documented as of this encounter
--- OUTSIDE RECORDS SUMMARY | 2025-06-18 12:30 | XMS_ITS | Clinical Summary ---
Author Organization [facility] Address [address], [address] [place] [address] Support Name Relationship Address Phone Jean Marie Owens VI Personal Relationship [address] [place] [address] Care Team Providers Care Director Of Quality Improvement Name Role Phone Yohana Scruggs NETWORK CONTROL OPERATORS SUPERVISOR - VETERINARY TECHNICIAN INSTRUCTOR Primary Care Provider Unavailable Allergies No known active allergies Medications metFORMIN (GLUCOPHAGE) 1000 MG tablet Take 1 tablet by mouth daily (with breakfast) Active meloxicam (MOBIC) 15 MG tablet Take 1 tablet by mouth daily Active Social History Tobacco Use Types Packs/Day Years Used Date Smoking Tobacco: Never Smokeless Tobacco: Never Tobacco Cessation:Counseling Given: Not Answered Alcohol Use Standard Drinks/Week Comments Never 0 (1 standard drink = 0.6 oz pur e alcohol) Sex and Gender Information Value Date Recorded Sex Assigned at Not on file Legal Sex Male 11:34 AM EDT Gender Identity Not on file Sexual Orientation Not on file Last Filed Vital Signs Vital Sign Reading Time Taken Comments Blood Pressure 131/60 03/25/2023 2:42 PM EDT Pulse 68 03/25/2023 2:42 PM EDT Temperature 37.1 C (98.8 F) 03/25/2023 11:38 AM EDT Respiratory Rate 16 03/25/2023 2:42 PM EDT Oxygen Saturation 97% 03/25/2023 2:42 PM EDT Inhaled Oxygen Concentration - - Weight 83.9 kg (185 lb) 03/25/2023 11:38 AM EDT Height - - Body Mass Index - - Plan of Treatment Health Maintenance Due Date Last Done Comments Depression Screen 1979 HIV screen 12/23/1982 Hepatitis C screen 12/23/1985 DTaP/Tdap/Td vaccine (1 - Tdap) 12/23/1986 Hepatitis B vaccine (1 of 3 - 19+ 3-dose series) 12/23/1986 Lipids 2007 Colonoscopy 12/23/2012 Colorectal Cancer Screen 12/23/2012 FIT/FOBT: Average risk 12/23/2012 Fecal-DNA (Cologuard): Average risk 12/23/2012 Sigmoidoscopy/CT colonography 12/23/2012 Pneumococcal 50+ years Vacci ne (1 of 1 - PCV) 12/23/2017 Shingles vaccine (1 of 2) 12/23/2017 Flu vaccine (#1) 04/19/2025 COVID-19 Vaccine (1 - 2023-2 5 season) 2025 Hepatitis A vaccine Aged Out No longe r eligible based on patient's age to complete this topic Hib vaccine Aged Out No longer eligi ble based on patient's age to complete this topic Meningococcal (ACWY) vaccine Aged Out No longer eligible based on patient's age to complete this topic Meningococcal B vaccine Aged Out No l onger eligible based on patient's age to complete this topic Polio vaccine Aged Out No longer elig ible based on patient's age to complete this topic Care Teams Director Of Quality Improvement Relationship Specialty Start Date End Date Yohana Scruggs, NETWORK CONTROL OPERATORS SUPERVISOR - VETERINARY TECHNICIAN INSTRUCTOR PCP - General Nurse Practitioner 03/25/23
--- OUTSIDE RECORDS SUMMARY | 2025-06-18 12:30 | XMS_ITS | Clinical Summary ---
Author Organization [facility] Address [address] [place] [address] Care Team Providers Care Wool Fleece Grader Name Role Phone Mely Vasquez MD Primary Care Provider [phone] Allergies No known active allergies Medications metFORMIN (Glucophage) 1,000 mg tablet Take 1,000 mg by mouth with breakfast and with evening meal. Active omeprazole OTC (PriLOSEC OTC) 20 mg EC tablet Take 20 mg by mouth before breakfast. Do not crush, chew, or split. Active cyclobenzaprine (Flexeril) 5 mg tablet TAKE 1 TABLET BY MOUTH EVERY DAY AT BEDTIME NEEDED FOR 30 DAYS 4 Active Active Problems Problem Noted Date Diagnosed Date Impotence 03/06/2024 Acid reflux 03/06/2024 Feeling of incomplete bladder emptying 4 Glycosuria 03/06/2024 Intermittent urinary stream 03/06/2024 Microscopic hematuria 03/06/2024 BPH associated with nocturia 03/06/2024 Nocturia 03/06/2024 Shoulder impingement syndrome 03/06/2024 Type 2 diabetes mellitus 03/06/2024 Type II diabetes mellitus 03/06/2024 Urinary hesitancy 03/06/2024 Family History Medical History Relation Name Comments Broken bones Mother Ely gill Osteoporosis Mother Ely gill Cancer Mother's Brother 1 Hong Volansky Diabetes Mother's Brother 2 Dwight Volansky Diabetes Mother's Sister Dossie muton Broken bones Sister Yoliniya gill Relation Name Status Comments Mother Ely gill Mother's Brother 1 Hong Volansky Mother's Brother 2 Dwight Volansky Mother's Sister Dossie muton Sister Yoli gill Social History Tobacco Use Types Packs/Day Years Used Date Smoking Tobacco: Former Smokeless Tobacco: Former Snuff Quit: 09/19/2016 Tobacco Cessation:Counseling Given: Not Answered Alcohol Use Standard Drinks/Week Comments Not Currently 0 (1 standard drink = 0.6 oz pur e alcohol) Rarely consume alcohol Humiliation, Afraid, Rape, and Kick questionnair e Answer Date Recorded Within the last year, have y ou been afraid of your partner or ex-partner? No 04/30/2024 Emotionally Abused Not on file 04/30/2024 Physically Abused Not on file 04/30/2024 Sexually Abused Not on file 04/30/2024 PHQ-2 Answer Date Recorded Patient Health Questionnaire-2 Score 0 04/30/2024 Sex and Gender Information Value Date Recorded Sex Assigned at Not on file Legal Sex Male 2:23 PM EDT Gender Identity Not on file Sexual Orientation Not on file Last Filed Vital Signs Vital Sign Reading Time Taken Comments Blood Pressure - - Pulse - - Temperature - - Respiratory Rate - - Oxygen Saturation - - Inhaled Oxygen Concentration - - Weight 83.9 kg (185 lb) 04/30/2024 8:32 AM EDT Height 175.3 cm (5' 9 ) 04/30/2024 8:32 AM EDT Body Mass Index 27.32 04/30/2024 8:32 AM EDT Plan of Treatment Health Maintenance Due Date Last Done Comments CT Colonography 1967 Colonoscopy 1967 Colorectal Cancer Screening 1967 Diabetes: Hemoglobin A1C 1967 FIT-DNA 1967 FIT 1967 FOBT 1967 Sigmoidoscopy 1967 Diabetes: Retinopathy Screening 12/23/1977 Depression Screening 1979 Diabetes: Urine Protein Screening 12/23/1986 Hepatitis B Vaccines (1 of 3 - 19+ 3-dose series) 12/23/1986 Pneumococcal Vaccine: Pediatrics (0 to 5 Years) and At-Risk Patients (6 to 64 Years) (1 of 2 - PCV) 12/23/1986 Adult Tetanus 12/23/1989 Zoster Vaccines (1 of 2) 12/23/2017 COVID-19 Vaccine (1 - season) 2025 Influenza Vaccine (#1) 2025 8, 06/07/2017, 05/26/2017, Additional history exists HIB Vaccines Aged Out No longer eligi ble based on patient's age to complete this topic HPV Vaccines Aged Out No longer eligi ble based on patient's age to complete this topic IPV Vaccines Aged Out No longer eligi ble based on patient's age to complete this topic Meningococcal B Vaccine Aged Out No l onger eligible based on patient's age to complete this topic Meningococcal Vaccine Aged Out No shaun timi eligible based on patient's age to complete this topic Rotavirus Vaccines Aged Out No longer eligible based on patient's age to complete this topic Insurance GENERIC [employer]CIAL [employer]CIAL [place] [id number] Care Teams Wool Fleece Grader Relationship Specialty Start Date End Date Mely Vasquez MD [address] [facility] [address] PCP - General 02/15/24
--- OUTSIDE RECORDS SUMMARY | 2025-06-18 12:30 | XMS_ITS | Encounter Summary ---
Author Organization [facility] Address [address] [place] [address] Care Team Providers Care Fence Gate Assembler Name Role Phone Mely Vasquez MD Primary Care Provider [phone] Mary Scruggs AQUACULTURE AND FISHERIES PROFESSOR Primary Care Provider [phone] Encounter Details Date Type Department Care Team (Late st Contact Info) Description 08/19/2023 Abstract [facility] [address] [place] [address] Herbert Lombardi, DO [address] [facility] [place] [address] Social History Tobacco Use Types Packs/Day Years [...] on filedocumented in this encounter Care Teams Fence Gate Assembler Relationship Specialty Start Date End Date Mely Vasquez MD PCP - General Family Medicine 03/30/23 06/17/25 Mary Scruggs NP [address] [place] [address] PCP - General Family Medicine 06/18/25 documented as of this encounter
--- OUTSIDE RECORDS SUMMARY | 2025-06-18 12:30 | XMS_ITS | Clinical Summary ---
Author Organization [facility] Address [address] [place] [address] Care Team Providers Care Veterans Service Officer Name Role Phone KaelMary Kendell [place] [employer] Primary Care Provider [phone] Allergies No known active allergies Medications metFORMIN (Glucophage) 1000 MG tablet Take 1,000 mg by mouth in the morning. Take with meals. Active omeprazole OTC (PriLOSEC OTC) 20 MG EC tablet Acti ve amitriptyline (Elavil) 10 MG tablet Take 20 mg by mouth 4 Active pregabalin (Lyrica) 300 MG capsule 5 Active glipiZIDE XL (Glucotrol XL) 10 MG 24 hr tablet Take 10 mg by mouth 5 Active HYDROcodone-asha taminophen (Gustine) 5-325 MG tablet TAKE 1 TABLET SPARINGLY UP TO 3 TIMES PER DAY NEEDED FOR POST-PROCEDURE PAIN NOT CONTRACTED 5 Active Active Problems Problem Noted Date Diagnosed Date Acute postoperative pain of left knee 06/15/2024 Encounters Date Type Department Care Team Description 06/18/2025 10:30 AM EDT Office Visit [facility] [address] [facility] [place] [address] Herbert Lombardi, Status post left knee replacement (Primary Dx); Left hip pain 06/18/2025 8:05 AM EDT Ancillary Procedure [facility] [address] [place] [address] 06/18/2025 8:00 AM EDT Ancillary Procedure [facility] [address] [place] [address] 06/18/2025 Travel 06/11/2025 Travel from Last 3 Months Family History Medical History Relation Name Comments Heart disease Father Broken bones Mother Ely Heart disease Mother Ely Hypertension Mother Ely Osteoporosis Mother Ely Relation Name Status Comments Father Mother Ely Social History Tobacco Use Types Packs/Day Years [...] Sign Reading Time Taken Comments Blood Pressure 130/75 02/14/2024 8:40 AM EDT Pulse 74 02/14/2024 8:40 AM EDT Temperature 36.4 C (97.6 F) 05/08/2024 9:52 AM EDT Respiratory Rate - - Oxygen Saturation - - Inhaled Oxygen Concentration - - Weight 97.5 kg (215 lb) 06/18/2025 10:12 AM EDT Height 175.3 cm (5' 9 ) 06/18/2025 10:12 AM EDT Body Mass Index 31.75 06/18/2025 10:12 AM EDT Plan of Treatment Not on file Insurance [employer] Care Teams Veterans Service Officer Relationship Specialty Start Date End Date Mary Scruggs NP [address] [place] [address] PCP - General Family Medicine 06/18/25
--- OUTSIDE RECORDS SUMMARY | 2025-06-18 12:30 | XMS_ITS | Encounter Summary ---
Author Organization [facility] Address [address] [place] [address] Care Team Providers Care Hoisting Machine Operator Name Role Phone Mely Vasquez MD Primary Care Provider [phone] Mary Scruggs NP Primary Care Provider [phone] Encounter Details Date Type Department Care Team (Late st Contact Info) Description 01/31/2024 Abstract [facility] [address] [place] [id number] Andres Goodrich, DPM FACFAS [address] [facility] [place] [address] Social History Tobacco Use Types [...] on filedocumented in this encounter Care Teams Hoisting Machine Operator Relationship Specialty Start Date End Date Mely Vasquez MD PCP - General Family Medicine 03/30/23 06/17/25 Mary Scruggs, FINISHING POWDER PRESS OPERATOR [address] [place] [address] PCP - General Family Medicine 06/18/25 documented as of this encounter
--- OUTSIDE RECORDS SUMMARY | 2025-06-18 12:30 | XMS_ITS | Clinical Summary ---
Author Organization [facility] Address [address] [place] [address] Phone Care Team Providers Care Sweet Pickle Maker Name Role Phone Unavailable Primary Care Provider Unavailabl e Social History Tobacco Use Types Packs/Day Years Used Date Smoking Tobacco: Never Assessed Sex and Gender Information Value Date Recorded Sex Assigned at Not on file Legal Sex Male 5:41 PM EST Gender Identity Not on file Sexual Orientation Not on file Plan of Treatment Health Maintenance Due Date Last Done Comments CT Colonography 1967 Colonoscopy 1967 Colorectal Cancer Screening 1967 FIT-DNA (Cologuard) 1967 FIT 1967 HIV Screening 1967 Lipid Panel 1967 Sigmoidoscopy 1967 Yearly Adult Physical 1967 MMR Vaccines (1 of 1 - Stand evie series) 12/23/1968 Hepatitis C Screening 12/23/1985 Hepatitis B Vaccines (1 of 3 - 19+ 3-dose series) 12/23/1986 DTaP/Tdap/Td Vaccines (1 - Tdap) 12/23/1989 PSA Prostate Cancer Screening 12/23/2017 Pneumococcal Vaccine (1 of 1 - PCV) 12/23/2017 Zoster Vaccines (1 of 2) 12/23/2017 COVID-19 Vaccine (1 - 2023-2 5 season) 2025 Influenza Vaccine (#1) 2025 HIB Vaccines Aged Out No longer eligi ble based on patient's age to complete this topic HPV Vaccines Aged Out No longer eligi ble based on patient's age to complete this topic Hepatitis A Vaccines Aged Out No long er eligible based on patient's age to complete this topic IPV Vaccines Aged Out No longer eligi ble based on patient's age to complete this topic Meningococcal Vaccine Aged Out No shaun timi eligible based on patient's age to complete this topic Rotavirus Vaccines Aged Out No longer eligible based on patient's age to complete this topic
--- OUTSIDE RECORDS SUMMARY | 2025-06-18 12:30 | XMS_ITS | Encounter Summary ---
Author Organization [facility] Address [address] [place] [address] Care Team Providers Care Medical Sales Representative Name Role Phone Mely Vasquez MD Primary Care Provider [phone] Mary Scruggs NP Primary Care Provider Encounter Details Date Type Department Care Team (Late st Contact Info) Description 09/30/2023 Clinisync Result Encounter [facility] External Department Unsolicited Carrillo Ferris, ALANNA [address] [place] [address] Social History Tobacco Use Types Packs/Day Years [...] Name Priority Date/Time Associated Diagnosis Comments MRI SHOULDER W/O CONTRAST LEFT 09/30/2023 6:49 PM EST documented in this encounter Results * MRI SHOULDER W/O CONTRAST LEFT (09/30/2023 6:49 PM EST) Anatomical Region Laterality Modality Other 09/30/2023 6:49 PM EST Narrative 10/03/2023 10:35 AM EST Exam Date/Time: 09/30/2023 20:16 EST Reason for Exam: M75.102 Report IMPRESSION: LOW-GRADE ARTICULAR SURFACE TEAR OF DISTAL ANTERIOR AND MID FIBERS OF INFRASPINATUS TENDON AT THE FOOTPRINT MEASURING APPROXIMATELY 6 MM IN AP DIMENSION. MILD LONG HEAD BICEPS TENDINOSIS. THERE IS ANTERIOR SUPERIOR THROUGH POSTERIOR SUPERIOR LABRUM. TEAR OF THE POSTERIOR INFERIOR LABRUM WITH A 9 MM PARALABRAL CYST. EXAM: MRI Shoulder w/o Contrast Left HISTORY: Shoulder pain and limited range of motion TECHNIQUE: Multiplanar multisequence MRI of the shoulder was performed without contrast. COMPARISON: None available. FINDINGS: Mild degenerative changes of the acromioclavicular joint without undersurface osteophyte formation. The acromion is curved. Coracoclavicular ligament intact. No subacromial/subdeltoid bursal fluid. Low-grade articular surface tear of distal anterior mid fibers of infraspinatus tendon at the footprint measuring approximately 6 mm in AP dimension. Supraspinatus, subscapularis, and teres minor tendons are intact. Postsurgical changes within the soft tissues along the acromion. No atrophy or fatty infiltration of the rotator cuff musculature. Mild intra-articular long head biceps tendinosis. The biceps tendon resides within the bicipital groove. Tear of the anterior superior through posterior superior labrum. Nondisplaced tear of the posterior inferior labrum with formation of a 9 mm paralabral cyst. No well-defined or measurable cartilage defect identified. No glenohumeral joint effusion. Report Ordering Provider: Carrillo Ferris FINAL REPORT Dictated: 10/03/2023 10:32 am Franco Bocanegra DO Signed (Electronic Signature): 10/03/2023 10:32 am Signed by: Franco Bocanegra DO Transcribed by: DESIREE Technologist: DEJA Technical Comments None Procedure Note Radiology, Radiologist, - 10/03/2023 Exam Date/Time: 09/30/2023 20:16 EST Reason for Exam: M75.102 Report IMPRESSION: LOW-GRADE ARTICULAR SURFACE TEAR OF DISTAL ANTERIOR AND MID FIBERS OFINFRASPINATUS TENDON AT THE FOOTPRINT MEASURING APPROXIMATELY 6 MM IN AP DIMENSION. MILD LONG HEAD BICEPS TENDINOSIS. THERE IS ANTERIOR SUPERIOR THROUGH POSTERIOR SUPERIOR LABRUM. TEAR OF THEPOSTERIOR INFERIOR LABRUM WITH A 9 MM PARALABRAL CYST. EXAM: MRI Shoulder w/o Contrast Left HISTORY: Shoulder pain and limited range of motion TECHNIQUE: Multiplanar multisequence MRI of the shoulder was performedwithout contrast. COMPARISON: None available. FINDINGS: Mild degenerative changes of the acromioclavicular joint withoutundersurface osteophyte formation. The acromion is curved. Coracoclavicular ligamentintact. No subacromial/subdeltoid bursal fluid. Low-grade articular surface tear of distal anterior mid fibers ofinfraspinatus tendon at the footprint measuring approximately 6 mm in AP dimension.Supraspinatus, subscapularis, and teres minor tendons are intact. Postsurgical changeswithin the soft tissues along the acromion. No atrophy or fatty infiltration of therotator cuff musculature. Mild intra-articular long head biceps tendinosis. The biceps tendonresides within the bicipital groove. Tear of the anterior superior through posterior superior labrum.Nondisplaced tear of the posterior inferior labrum with formation of a 9 mm paralabral cyst.No well-defined or measurable cartilage defect identified. No glenohumeral joint effusion. Report Ordering Provider: Carrillo Ferris FINAL REPORT Dictated: 10/03/2023 10:32 am Franco Bocanegra DO Signed (Electronic Signature): 10/03/2023 10:32 am Signed by: Franco Bocanegra DO Transcribed by: DESIREE Technologist: DEJA Technical Comments None [facility] Final Result documented in this encounter Visit Diagnoses Not on filedocumented in this encounter Care Teams Medical Sales Representative Relationship Specialty Start Date End Date Mely Vasquez MD PCP - General Family Medicine 03/30/23 06/17/25 Mary Scruggs NP [address] [place] [address] PCP - General Family Medicine 06/18/25 documented as of this encounter
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
== END 2025-06-18 12:15 | disposition home or self-care (01) ==
LOC: LAB 12:17
PROVIDERS: PCP Family Medicine; Visit Provider Family Medicine
DX: E11.65 Type 2 diabetes mellitus with hyperglycemia (principal)
CPT/HCPCS: 36415; 83036